=== PATIENT | male | born 1940 | race Caucasian/White ===

== ENCOUNTER 2016-10-21 09:45 | Emergency (ER) | payer MEDICARE, OTHER ==
[2016-10-21 10:21] LABS: ABSOLUTE LYMPHOCYTES (AUTO) 0.5 10^3/uL (0.5-4.7); ABSOLUTE MONOCYTES (AUTO) 0.4 10^3/uL (0.1-1.4); ABSOLUTE NEUT (AUTO) 8.3 10^3/uL (1.7-8.2); BASOPHILS % (AUTO) 0.3 % (0-2); HEMATOCRIT 45.4 % (37.9-51.0); HEMOGLOBIN 15.8 g/dL (13.5-17.0); LYMPHOCYTES % (AUTO) 5.5 % (13-45); MEAN CORPUSCULAR HEMOGLOBIN 32.2 pg (27.0-33.4); MEAN CORPUSCULAR HGB CONC 34.7 g/dL (32.0-36.0); MEAN CORPUSCULAR VOLUME 93 fl (80-97); MONOCYTES % (AUTO) 3.9 % (3-13); RED BLOOD COUNT 4.88 10^6/uL (4.35-5.55); RED CELL DISTRIBUTION WIDTH 14.3 % (11.5-14.0); SEGMENTED NEUTROPHILS % (AUTO) 90.3 % (42-78); WHITE BLOOD COUNT 9.2 10^3/uL (4.0-10.5)
[2016-10-21] MEDS ORDERED: MORPHINE SULFATE 10 MG/ML INJ IV ONE (10:36)
[2016-10-21] MEDS ORDERED: NORMAL SALINE 1000 ML 1,000 ML IV ONE (10:36)
[2016-10-21] MEDS ORDERED: ONDANSETRON HCL INJ/PF 4 MG/2 ML SDV IV ONE (10:36)
--- NOTE | 2016-10-21 10:39 | ER Document Report ---
ED General - General Chief Complaint: Abdominal Pain >50 Stated Complaint: ABDOMINAL PAIN Time Seen by Provider: 10/21/16 10:11 Mode of Arrival: Ambulatory Information source: Patient Notes: 76 yr old male presents with complaitns or RUQ pain with nausea vomting . Pt notes that he has had chronic leg pain that he has had worsened since he TRAVEL OUTSIDE OF THE [place] IN LAST 30 DAYS: No - HPI Onset: Other Onset/Duration: Persistent - 4 day duration Quality of pain: Achy Severity: Mild Pain Level: 1 Associated symptoms: Diarrhea, Nausea, Vomiting Exacerbated by: Denies Relieved by: Denies Similar symptoms previously: No Recently seen / treated by doctor: Yes - Seen at pain clinic yesterday given nausea control - Related Data Allergies/Adverse Reactions: No Known Allergies Allergy (Verified 10/21/16 10:24) Home Medications: Current Home Medications Oxycodone HCl/Acetaminophen [Percocet 10-325 Mg Tablet] 1 each PO BID 10/21/16 [ History] Past Medical History - Social History Smoking Status: Never Smoker Cigarette use (# per day): No Chew tobacco use (# tins/day): No Smoking Education Provided: No Frequency of alcohol use: None Drug Abuse: None Family History: Reviewed & Not Pertinent Patient has suicidal ideation: No Patient has homicidal ideation: No - Past Medical History Cardiac Medical History: Reports: Hx Atrial Fibrillation, Hx Hypercholesterolemia, Hx Heart Murmur - req sbe prophylaxis Denies: Hx Heart Attack, Hx Hypertension Pulmonary Medical History: Denies: Hx Asthma Neurological Medical History: Denies: Hx Cerebrovascular Accident, Hx Seizures Endocrine Medical History: Reports: Hx Diabetes Mellitus Type 2 Renal/ Medical History: Reports: Hx Kidney Stones. Denies: Hx Peritoneal Dialysis Malignancy Medical History: Reports Hx Prostate Cancer GI Medical History: Denies: Hx Hepatitis, Hx Hiatal Hernia, Hx Ulcer Musculoskeltal Medical History: Reports Hx Arthritis, Reports Hx Musculoskeletal Deformity, Reports Hx Musculoskeletal Trauma Infectious Medical History: Denies: Hx Hepatitis Past Surgical History: Reports: Hx Orthopedic Surgery - knee right replacement. Denies: Hx Open Heart Surgery, Hx Pacemaker - Immunizations Immunizations up to date: Yes Hx Diphtheria, Pertussis, Tetanus Vaccination: Yes Hx Pneumococcal Vaccination: 09/19/12 Review of Systems - Review of Systems Notes: REVIEW OF SYSTEMS: CONSTITUTIONAL : Denies fever, chills, or sweats. Denies recent illness. EENT: Denies eye, ear, throat, or mouth pain or symptoms. Denies nasal or sinus congestion or discharge. Denies throat, tongue, or mouth swelling or difficulty swallowing. CARDIOVASCULAR: Denies chest pain. Denies palpitations or racing or irregular heart beat. Denies ankle edema. RESPIRATORY: Denies cough, cold, or chest congestion. Denies shortness of breath, difficulty breathing, or wheezing. GASTROINTESTINAL: Admits to abdominal pain nausea vomiting diarrhea GENITOURINARY: Denies difficulty urinating, painful urination, burning, frequency, blood in urine, or discharge. MUSCULOSKELETAL: Admits to chronic arthritic pain of the left lower extremity SKIN: Denies rash, lesions or sores. HEMATOLOGIC : Denies easy bruising or bleeding. LYMPHATIC: Denies swollen, enlarged glands. NEUROLOGICAL: Denies confusion or altered mental status. Denies passing out or loss of consciousness. Denies dizziness or lightheadedness. Denies headache. Denies weakness or paralysis or loss of use of either side. Denies problems with gait or speech. Denies sensory loss, numbness, or tingling. Denies seizures. PSYCHIATRIC: Denies anxiety or stress. Denies depression, suicidal ideation, or homicidal ideation. ALL OTHER SYSTEMS REVIEWED AND NEGATIVE. Dictation was performed using [employer] voice recognition software PHYSICAL EXAMINATION: GENERAL: Well-appearing, well-nourished and in no acute distress. HEAD: Atraumatic, normocephalic. EYES: Pupils equal round and reactive to light, extraocular movements intact, sclera anicteric, conjunctiva are normal. ENT: Nares patent, oropharynx clear without exudates. Moist mucous membranes. NECK: Normal range of motion, supple without lymphadenopathy LUNGS: Breath sounds clear to auscultation bilaterally and equal. No wheezes rales or rhonchi. HEART: Regular rate and rhythm without murmurs ABDOMEN: Soft, tender in the right upper quadrant without rebound or guarding Musculoskeletal: Normal range of motion, no pitting or edema. No cyanosis. NEUROLOGICAL: Cranial nerves grossly intact. Normal speech, normal gait. Normal sensory, motor exams PSYCH: Normal mood, normal affect. SKIN: Extremely becerra in the appearance Physical Exam - Vital signs Vitals: Temp Pulse Resp BP Pulse Ox 97.5 F 73 14 122/79 99 10/21/16 09:50 10/21/16 09:50 10/21/16 09:50 10/21/16 09:50 10/21/16 09:50 Course - Re-evaluation Re-evalutation: 10/21/16 10:44 Patient symptoms have been worsening since he has not been able to hold down his pain control I will give fluids, pain control, labs and imaging 10/21/16 12:09 Patient's lab work imaging note no significant abnormality, patient will be continued on IV fluids and will be discharged home nausea control the otherwise looks well After performing a Medical Screening Examination, I estimate there is LOW risk for ACUTE APPENDICITIS, BOWEL OBSTRUCTION, ACUTE CHOLECYSTITIS, PERFORATED DIVERTICULITIS, INCARCERATED HERNIA, PANCREATITIS, or PERFORATED ULCER, thus I consider the discharge disposition reasonable. Also, there is no evidence or peritonitis, sepsis, or toxicity. I have reevaluated this patient multiple times and no significant life threatening changes are noted. The patient and I have discussed the diagnosis and risks, and we agree with discharging home with close follow-up with the understanding that symptoms and presentations can change. We also discussed returning to the Emergency Department immediately if new or worsening symptoms occur. We have discussed the symptoms which are most concerning (e.g., bloody stool, fever, changing or worsening pain, intractable vomiting - standard verbal up date) that necessitate immediate return. - Vital Signs Vital signs: Temp Pulse Resp BP Pulse Ox 97.5 F 73 14 122/79 99 10/21/16 09:50 10/21/16 09:50 10/21/16 09:50 10/21/16 09:50 10/21/16 09:50 - Laboratory Result Diagrams: 10/21/16 10:05 10/21/16 10:05 Laboratory results interpreted by me: 10/21/16 10/21/16 10:05 10:05 RDW 14.3 H Seg Neutrophils % 90.3 H Lymphocytes % 5.5 L Absolute Neutrophils 8.3 H Glucose 125 H Total Bilirubin 1.4 H - Diagnostic Test Radiology reviewed: Image reviewed, Reports reviewed - no acute abnormality Discharge - Discharge Clinical Impression: Chronic arthritic pain Abdominal pain Qualifiers: Abdominal location: right upper quadrant Qualified Code(s): R10.11 - Right upper quadrant pain Nausea & vomiting Qualifiers: Vomiting type: unspecified Vomiting Intractability: non-intractable Qualified Code(s): R11.2 - Nausea with vomiting, unspecified Condition: Stable Disposition: HOME, SELF-CARE Instructions: Abdominal Pain ([facility]) Prescriptions: Promethazine HCl [Phenergan 25 mg Tablet] 25 - 50 mg PO ASDIR PRN #12 tablet PRN Reason: Referrals: ED IQBAL MD [Primary Care Provider] - Follow up tomorrow
[2016-10-21 10:49] LABS: ALANINE AMINOTRANSFERASE 48 U/L (21-72); ALBUMIN 4.2 g/dL (3.5-5.0); ALKALINE PHOSPHATASE 85 U/L (38-126); ANION GAP 13 (5-19); ASPARTATE AMINO TRANSFERASE 43 U/L (17-59); BILIRUBIN,DIRECT 0.4 mg/dL (0.0-0.4); BILIRUBIN,TOTAL 1.4 mg/dL (0.2-1.3); BLOOD UREA NITROGEN 12 mg/dL (7-20); CALCIUM 9.8 mg/dL (8.4-10.2); CARBON DIOXIDE 26 mmol/L (22-30); CHLORIDE 105 mmol/L (98-107); CREATININE RESULT 0.81 mg/dL (0.52-1.25); GLUCOSE 125 mg/dL (75-110); LIPASE 173.6 U/L (23-300); POTASSIUM 4.2 mmol/L (3.6-5.0); SODIUM 144.1 mmol/L (137-145); TOTAL PROTEIN 7.6 g/dL (6.3-8.2)
--- NOTE | 2016-10-21 11:52 | RADIOLOGY REPORT (SQ) ---
EXAM DESCRIPTION: U/S ABDOMEN LIMITED W/O DOP COMPLETED DATE/TIME: 10/21/2016 11:44 am REASON FOR STUDY: RUQ pain COMPARISON: None. TECHNIQUE: Dynamic and static grayscale images acquired of the abdomen and recorded on PACS. Additio nal selected color Doppler and spectral images recorded. LIMITATIONS: None. FINDINGS: PANCREAS: No masses. Visualized pancreatic duct normal caliber. LIVER: No masses. Echotexture normal. LIVER VASCULATURE: Normal directional flow of the main portal vein and hepatic veins. GALLBLADDER: No stones. Normal wall thickness. No pericholecystic fluid. ULTRASOUND-DETECTED SANTAMARIA'S SIGN: Negative. INTRAHEPATIC DUCTS AND COMMON DUCT: CBD and intrahepatic ducts normal caliber. No filling defects. INFERIOR VENA CAVA: Normal flow. AORTA: No aneurysm. RIGHT KIDNEY: Normal size. Normal echogenicity. No solid or suspicious masses. No hydronephrosis. No calcifications. PERITONEAL AND RIGHT PLEURAL SPACE: No ascites or effusions. OTHER: No other significant findings. IMPRESSION: NORMAL RIGHT UPPER QUADRANT ULTRASOUND. TECHNICAL DOCUMENTATION: JOB ID: [id number]- All Rights Reserved
[2016-10-21 14:20] VITALS: BP 114/54
== END 2016-10-21 14:20 | disposition home or self-care (01) ==
LOC: ER 09:45
DX: R10.11 Right upper quadrant pain (principal); R19.7 Diarrhea, unspecified; R11.2 Nausea with vomiting, unspecified; I10 Essential (primary) hypertension; M19.90 Unspecified osteoarthritis, unspecified site; M79.606 Pain in leg, unspecified; G89.29 Other chronic pain; E11.9 Type 2 diabetes mellitus without complications; Z85.46 Personal history of malignant neoplasm of prostate
CPT/HCPCS: 99284; 96361; 96374; 96375; 36415; 83690; 85025; 80053; 76705; J2270; J2405; J7030

== ENCOUNTER 2017-04-19 02:23 | Emergency (ER) | payer MEDICARE, OTHER ==
[2017-04-19] MEDS ORDERED: DIAZEPAM 2 MG TABLET PO ONE (03:01)
[2017-04-19 04:23] LABS: ANION GAP 8 (5-19); BLOOD UREA NITROGEN 16 mg/dL (7-20); CALCIUM 9.8 mg/dL (8.4-10.2); CARBON DIOXIDE 30 mmol/L (22-30); CHLORIDE 105 mmol/L (98-107); GLUCOSE 112 mg/dL (75-110); MAGNESIUM 1.7 mg/dL (1.6-2.3); SODIUM 142.7 mmol/L (137-145)
[2017-04-19 04:29] LABS: APPEARANCE,URINE CLEAR; BILIRUBIN,URINE NEGATIVE (NEGATIVE); COLOR,URINE YELLOW; GLUCOSE, URINE NEGATIVE (NEGATIVE); KETONES,URINE NEGATIVE (NEGATIVE); LEUKOCYTE ESTERASE,URINE NEGATIVE (NEGATIVE); NITRITE,URINE NEGATIVE (NEGATIVE); PROTEIN,URINE NEGATIVE (NEGATIVE); URINE SPECIFIC GRAVITY 1.011
[2017-04-19] MEDS ORDERED: TAMSULOSIN HCL 0.4 MG CAP.SR.24H PO ONE (05:06)
--- NOTE | 2017-04-19 05:11 | ER Document Report ---
ED General - General Chief Complaint: Urinary Problem Stated Complaint: FREQUENT URINATION Time Seen by Provider: 04/19/17 03:01 TRAVEL OUTSIDE OF THE [place] IN LAST 30 DAYS: No - HPI Patient complains to provider of: Frequent urination muscle spasm in legs Notes: Patient coming in for multiple complaints most concerning for the patient is frequent urination and muscle spasms in his legs. Patient is on chronic pain management also was taken Neurontin. Patient states that he has been having spasm in his leg states he is status post less tested for the spasms by his PCP. Patient also states frequent urination. Denies any dysuria. States frequency of small amounts. Patient otherwise also complains of insomnia and is feeling generally unwell. Patient was alert and oriented looks no obvious distress upon my evaluation. - Related Data Allergies/Adverse Reactions: No Known Allergies Allergy (Verified 04/19/17 02:32) Past Medical History - Social History Smoking Status: Unknown if Ever Smoked Family History: Reviewed & Not Pertinent Patient has suicidal ideation: No Patient has homicidal ideation: No - Past Medical History Cardiac Medical History: Reports: Hx Atrial Fibrillation, Hx Hypercholesterolemia, Hx Heart Murmur - req sbe prophylaxis Denies: Hx Heart Attack, Hx Hypertension Pulmonary Medical History: Denies: Hx Asthma Neurological Medical History: Denies: Hx Cerebrovascular Accident, Hx Seizures Endocrine Medical History: Reports: Hx Diabetes Mellitus Type 2 Renal/ Medical History: Reports: Hx Kidney Stones. Denies: Hx Peritoneal Dialysis Malignancy Medical History: Reports Hx Prostate Cancer GI Medical History: Denies: Hx Hepatitis, Hx Hiatal Hernia, Hx Ulcer Musculoskeltal Medical History: Reports Hx Arthritis, Reports Hx Musculoskeletal Deformity, Reports Hx Musculoskeletal Trauma Infectious Medical History: Denies: Hx Hepatitis Past Surgical History: Reports: Hx Orthopedic Surgery - knee right replacement. Denies: Hx Open Heart Surgery, Hx Pacemaker - Immunizations Immunizations up to date: Yes Hx Diphtheria, Pertussis, Tetanus Vaccination: Yes Hx Pneumococcal Vaccination: 09/19/12 Review of Systems - Review of Systems Constitutional: Other - Urinary frequency and muscle spasms EENT: No symptoms reported Cardiovascular: No symptoms reported Respiratory: No symptoms reported Gastrointestinal: No symptoms reported Genitourinary: No symptoms reported Male Genitourinary: No symptoms reported Musculoskeletal: No symptoms reported Skin: No symptoms reported Hematologic/Lymphatic: No symptoms reported Neurological/Psychological: No symptoms reported -: Yes All other systems reviewed and negative Physical Exam - Vital signs Vitals: Temp Pulse Resp BP Pulse Ox 97.8 F 54 L 16 122/66 99 04/19/17 02:38 04/19/17 02:38 04/19/17 02:38 04/19/17 02:38 04/19/17 02:38 Interpretation: Normal - General General appearance: Appears well, Alert - HEENT Head: Normocephalic, Atraumatic Eyes: Normal Pupils: PERRL - Respiratory Respiratory status: No respiratory distress Chest status: Nontender Breath sounds: Normal Chest palpation: Normal - Cardiovascular Rhythm: Regular Heart sounds: Normal auscultation Murmur: No - Abdominal Inspection: Normal Distension: No distension Bowel sounds: Normal Tenderness: Nontender Organomegaly: No organomegaly - Back Back: Normal, Nontender - Extremities General upper extremity: Normal inspection, Nontender, Normal color, Normal ROM , Normal temperature General lower extremity: Normal inspection, Nontender, Normal color, Normal ROM , Normal temperature, Normal weight bearing, Other - Fasciculations of the left thigh muscle are seen. No: Sahra's sign - Neurological Neuro grossly intact: Yes Cognition: Normal Orientation: AAOx4 Jillian Coma Scale Eye Opening: Spontaneous Leona Coma Scale Verbal: Oriented Jillian Coma Scale Motor: Obeys Commands Leona Coma Scale Total: 15 Speech: Normal Motor strength normal: LUE, RUE, LLE, RLE Sensory: Normal - Psychological Associated symptoms: Normal affect, Normal mood - Skin Skin Temperature: Warm Skin Moisture: Dry Skin Color: Normal Course - Re-evaluation Re-evalutation: 04/19/17 05:17 Fasciculations resolved after volume. Patient is on Percocet chronically. Patient will be given Skelaxin for muscle relaxer for home. Patient also restarted on Flomax no signs of any critical pathology seen laboratory studies. - Vital Signs Vital signs: Temp Pulse Resp BP Pulse Ox 97.8 F 54 L 16 122/66 99 04/19/17 02:38 04/19/17 02:38 04/19/17 02:38 04/19/17 02:38 04/19/17 02:38 - Laboratory Result Diagrams: 04/19/17 03:35 Laboratory results interpreted by me: 04/19/17 04/19/17 03:35 04:15 Glucose 112 H Urine Urobilinogen 4.0 H Urine Ascorbic Acid 20 H Discharge - Discharge Clinical Impression: Urinary frequency Muscle spasms of lower extremity Qualifiers: Laterality: left Qualified Code(s): M62.838 - Other muscle spasm Condition: Good Disposition: HOME, SELF-CARE Instructions: Flomax ([facility]), Muscle Relaxers ([facility]) Additional Instructions: At this time your urinalysis does show any signs of infection. The fasciculations in your left lower extremity have resolved. I will prescribe you muscle relaxer for home. Please take as directed. For urinary frequency this could be due to underlying BPH we will start you on Flomax if you receive relief with your symptoms I will discuss this with your primary care physician Prescriptions: Metaxalone [Skelaxin 800 mg Tablet] 800 mg PO ASDIR PRN #20 tablet PRN Reason: Tamsulosin HCl [Flomax 0.4 mg Cap.sr] 0.4 mg PO DAILY #7 cap.sr.24h Forms: Return to Work Referrals: MIKAELA WEBSTER NP [Primary Care Provider] - Follow up as needed
[2017-04-19 05:30] VITALS: BP 121/68
== END 2017-04-19 05:30 | disposition home or self-care (01) ==
LOC: ER 02:23
DX: R35.0 Frequency of micturition (principal); M62.838 Other muscle spasm; G47.00 Insomnia, unspecified; E11.9 Type 2 diabetes mellitus without complications; Z79.891 Long term (current) use of opiate analgesic; Z79.899 Other long term (current) drug therapy
CPT/HCPCS: 99283; 36415; 83735; 80048; 81001; A9270 ×2; J3490

== ENCOUNTER 2017-04-20 10:38 | Emergency (ER) | payer MEDICARE, OTHER ==
[2017-04-20] MEDS ORDERED: NORMAL SALINE 1000 ML 1,000 ML IV ONE (10:58)
--- NOTE | 2017-04-20 11:00 | ER Document Report ---
ED Medical Screen (RME) - General Chief Complaint: Diarrhea Stated Complaint: ABDOMINAL PAIN Time Seen by Provider: 04/20/17 10:57 Mode of Arrival: Wheelchair Information source: Patient, Relative TRAVEL OUTSIDE OF THE [place] IN LAST 30 DAYS: No - HPI Patient complains to provider of: abd pain Onset: Yesterday - pt .seen here yesterday for frequent urination with c/o lower abd pain and possible dehydration - Related Data Allergies/Adverse Reactions: No Known Allergies Allergy (Verified 04/20/17 10:40) Past Medical History - Social History Frequency of alcohol use: None Drug Abuse: None - Past Medical History Cardiac Medical History: Reports: Hx Atrial Fibrillation, Hx Hypercholesterolemia, Hx Heart Murmur - req sbe prophylaxis Denies: Hx Heart Attack, Hx Hypertension Pulmonary Medical History: Denies: Hx Asthma Neurological Medical History: Denies: Hx Cerebrovascular Accident, Hx Seizures Endocrine Medical History: Reports: Hx Diabetes Mellitus Type 2 Renal/ Medical History: Reports: Hx Kidney Stones. Denies: Hx Peritoneal Dialysis Malignancy Medical History: Reports Hx Prostate Cancer GI Medical History: Denies: Hx Hepatitis, Hx Hiatal Hernia, Hx Ulcer Musculoskeltal Medical History: Reports Hx Arthritis, Reports Hx Musculoskeletal Deformity, Reports Hx Musculoskeletal Trauma Infectious Medical History: Denies: Hx Hepatitis Past Surgical History: Reports: Hx Orthopedic Surgery - knee right replacement. Denies: Hx Open Heart Surgery, Hx Pacemaker - Immunizations Immunizations up to date: Yes Hx Diphtheria, Pertussis, Tetanus Vaccination: Yes Physical Exam - Vital signs Vitals: Temp Pulse Resp BP Pulse Ox 97.6 F 89 12 126/90 H 99 04/20/17 10:47 04/20/17 10:47 04/20/17 10:47 04/20/17 10:47 04/20/17 10:47 Course - Vital Signs Vital signs: Temp Pulse Resp BP Pulse Ox 97.6 F 89 12 126/90 H 99 04/20/17 10:47 04/20/17 10:47 04/20/17 10:47 04/20/17 10:47 04/20/17 10:47
[2017-04-20 11:46] LABS: ABSOLUTE BASOPHILS # (AUTO) 0.1 10^3/uL (0.0-0.2); ABSOLUTE LYMPHOCYTES (AUTO) 0.9 10^3/uL (0.5-4.7); ABSOLUTE MONOCYTES (AUTO) 0.7 10^3/uL (0.1-1.4); ABSOLUTE NEUT (AUTO) 4.6 10^3/uL (1.7-8.2); APPEARANCE,URINE CLEAR; BILIRUBIN,URINE NEGATIVE (NEGATIVE); COLOR,URINE YELLOW; EOSINOPHILS % (AUTO) 0.3 % (0-6); GLUCOSE, URINE NEGATIVE (NEGATIVE); HEMATOCRIT 44.4 % (37.9-51.0); HEMOGLOBIN 14.9 g/dL (13.5-17.0); KETONES,URINE 20 mg/dL (NEGATIVE); LEUKOCYTE ESTERASE,URINE NEGATIVE (NEGATIVE); LYMPHOCYTES % (AUTO) 14.5 % (13-45); MEAN CORPUSCULAR HGB CONC 33.7 g/dL (32.0-36.0); MEAN CORPUSCULAR VOLUME 92 fl (80-97); MONOCYTES % (AUTO) 11.1 % (3-13); NITRITE,URINE NEGATIVE (NEGATIVE); PLATELET COUNT 194 10^3/uL (150-450); PROTEIN,URINE NEGATIVE (NEGATIVE); RED BLOOD COUNT 4.82 10^6/uL (4.35-5.55); RED CELL DISTRIBUTION WIDTH 13.4 % (11.5-14.0); SEGMENTED NEUTROPHILS % (AUTO) 73.1 % (42-78); TOTAL CELLS COUNTED % (AUTO) 100 %; URINE SPECIFIC GRAVITY 1.017; WHITE BLOOD COUNT 6.2 10^3/uL (4.0-10.5)
[2017-04-20 12:03] LABS: ALANINE AMINOTRANSFERASE 44 U/L (21-72); ALBUMIN 4.7 g/dL (3.5-5.0); ALKALINE PHOSPHATASE 74 U/L (38-126); ANION GAP 11 (5-19); ASPARTATE AMINO TRANSFERASE 41 U/L (17-59); BILIRUBIN,DIRECT 0.4 mg/dL (0.0-0.4); BILIRUBIN,TOTAL 1.5 mg/dL (0.2-1.3); BLOOD UREA NITROGEN 16 mg/dL (7-20); CALCIUM 10.3 mg/dL (8.4-10.2); CARBON DIOXIDE 30 mmol/L (22-30); CHLORIDE 104 mmol/L (98-107); GLUCOSE 103 mg/dL (75-110); LIPASE 191.5 U/L (23-300); POTASSIUM 4.3 mmol/L (3.6-5.0); SODIUM 144.8 mmol/L (137-145); TOTAL PROTEIN 7.7 g/dL (6.3-8.2)
[2017-04-20] MEDS ORDERED: NORMAL SALINE 1000 ML 1,000 ML IV PRN (12:53)
--- NOTE | 2017-04-20 13:07 | ER Document Report ---
ED General <TITI FUENTES - Last Filed: 04/20/17 13:07> - General Mode of Arrival: Wheelchair TRAVEL OUTSIDE OF THE [place] IN LAST 30 DAYS: No <AGAPITO BECKER - Last Filed: 04/21/17 20:07> - General Chief Complaint: Diarrhea Stated Complaint: ABDOMINAL PAIN Time Seen by Provider: 04/20/17 10:57 Notes: Patient presents with approximately 5 bouts of nonbloody diarrhea and intermittent abdominal cramping that started last night. Denies any chest pain recent cough congestion or fevers. He was seen yesterday in the emergency department as well for fatigue and having restless leg of his right lower extremity that he states has been chronic and intermittent over the last several years. He was prescribed muscle relaxers yesterday and sent home. He represents today because he is concerned he may be dehydrated due to his diarrhea. (AGAPITO BECKER) - Related Data Allergies/Adverse Reactions: No Known Allergies Allergy (Verified 04/20/17 10:40) Past Medical History - General Information source: Patient, Relative - Social History Smoking Status: Never Smoker Frequency of alcohol use: None Drug Abuse: None Family History: Reviewed & Not Pertinent Patient has suicidal ideation: No Patient has homicidal ideation: No - Past Medical History Cardiac Medical History: Reports: Hx Atrial Fibrillation, Hx Hypercholesterolemia, Hx Heart Murmur - req sbe prophylaxis Denies: Hx Heart Attack, Hx Hypertension Pulmonary Medical History: Denies: Hx Asthma Neurological Medical History: Denies: Hx Cerebrovascular Accident, Hx Seizures Endocrine Medical History: Reports: Hx Diabetes Mellitus Type 2 Renal/ Medical History: Reports: Hx Kidney Stones. Denies: Hx Peritoneal Dialysis Malignancy Medical History: Reports Hx Prostate Cancer GI Medical History: Denies: Hx Hepatitis, Hx Hiatal Hernia, Hx Ulcer Musculoskeltal Medical History: Reports Hx Arthritis, Reports Hx Musculoskeletal Deformity, Reports Hx Musculoskeletal Trauma Infectious Medical History: Denies: Hx Hepatitis Past Surgical History: Reports: Hx Orthopedic Surgery - knee right replacement. Denies: Hx Open Heart Surgery, Hx Pacemaker - Immunizations Immunizations up to date: Yes Hx Diphtheria, Pertussis, Tetanus Vaccination: Yes Hx Pneumococcal Vaccination: 09/19/12 <AGAPTIO BECKER - Last Filed: 04/21/17 20:07> Review of Systems - Review of Systems Constitutional: Malaise EENT: No symptoms reported Cardiovascular: No symptoms reported Respiratory: No symptoms reported Gastrointestinal: Diarrhea Genitourinary: No symptoms reported Male Genitourinary: No symptoms reported Musculoskeletal: No symptoms reported, Other - Intermittent restless leg of right lower extremity asymptomatic at this time Skin: No symptoms reported Hematologic/Lymphatic: No symptoms reported Neurological/Psychological: No symptoms reported <AGAPITO BECKER Kenzie - Last Filed: 04/21/17 20:07> Physical Exam - General General appearance: Appears well, Alert - HEENT Head: Normocephalic, Atraumatic - Respiratory Respiratory status: No respiratory distress Chest status: Nontender Breath sounds: Normal Chest palpation: Normal - Cardiovascular Rhythm: Irregularly irregular Heart sounds: Normal auscultation Murmur: No Friction rub: No - Abdominal Inspection: Normal Distension: No distension Bowel sounds: Normal Tenderness: Nontender - Extremities General upper extremity: Normal inspection - Neurological Neuro grossly intact: Yes <AGAPITO BECKER Kenzie - Last Filed: 04/21/17 20:07> - Vital signs Vitals: Temp Pulse Resp BP Pulse Ox 97.6 F 89 12 126/90 H 99 04/20/17 10:47 04/20/17 10:47 04/20/17 10:47 04/20/17 10:47 04/20/17 10:47 Course - Laboratory Result Diagrams: 04/20/17 11:25 04/20/17 11:25 <TITI FUENTES - Last Filed: 04/20/17 13:07> - Laboratory Result Diagrams: 04/20/17 11:25 04/20/17 11:25 <AGAPITO BECKER Kenzie - Last Filed: 04/21/17 20:07> - Re-evaluation Re-evalutation: 04/20/17 13:06 Differential diagnosis: Diarrhea, gastritis, electrolyte disturbance, dehydration 04/20/17 13:06 We will draw basic labs due to patient's age to ensure no electrolyte abnormality provide fluids and reassess. 04/20/17 14:21 Patient's labs within normal limits are nonsignificant with mild ketones in urine. 1 L of fluid were provided as well as he is on chronic Percocet 3 times a day and his pain pill was provided to him as he had not taken it this morning for his chronic right lower extremity pain. Patient was instructed to take Pepto-Bismol for his diarrhea and follow-up with his primary care doctor in 2-3 days or sooner to the emergency department if symptoms are worsening (AGAPITO BECKER) - Vital Signs Vital signs: Temp Pulse Resp BP Pulse Ox 97.6 F 89 19 134/79 H 99 04/20/17 10:47 04/20/17 10:47 04/20/17 14:30 04/20/17 14:30 04/20/17 14:30 - Laboratory Laboratory results interpreted by me: 04/20/17 04/20/17 11:25 11:25 Calcium 10.3 H Total Bilirubin 1.5 H Urine Ketones 20 H Urine Urobilinogen 4.0 H Urine Ascorbic Acid 40 H Discharge <TITI FUENTES - Last Filed: 04/20/17 13:07> <AGAPITO BECKER - Last Filed: 04/21/17 20:07> - Discharge Clinical Impression: Leg pain, right Diarrhea Qualifiers: Diarrhea type: unspecified type Qualified Code(s): R19.7 - Diarrhea, unspecified Condition: Good Disposition: HOME, SELF-CARE Instructions: Diarrhea, Nonspecific ([facility]) Additional Instructions: Please follow-up with your primary care physician in 2-3 days for reevaluation or sooner to the emergency arm if symptoms are worsening. Please take over-the- counter Pepto-Bismol for your diarrhea starting today. Referrals: [facility] IQ[facility] MD [Primary Care Provider] - Follow up as needed Scribe Attestation: 04/21/17 19:27 I personally performed the services described documentation, reviewed and edited the documentation which was dictated to describe my presence, and it accurately records my words and actions. (AGAPITO BECKER)
--- NOTE | 2017-04-20 13:35 | RADIOLOGY REPORT (SQ) ---
EXAM DESCRIPTION: CT ABD/PELVIS WITH IV ONLY COMPLETED DATE/TIME: 04/20/2017 1:25 pm REASON FOR STUDY: abd pain COMPARISON: None. TECHNIQUE: CT scan of the abdomen and pelvis performed using helical scanning technique with dynamic intravenous contrast injection. No oral contrast. Images reviewed with lung, soft tissue, and bone windows. Reconstructed coronal and sagittal MPR images reviewed. Delayed images for evaluation of the urinary system also acquired. All images stored on PACS. All CT scanners at this facility use dose modulation, iterative reconstruction, and/or weight based d osing when appropriate to reduce radiation dose to as low as reasonably achievable (ALARA). [facility]: Dose Right [facility]: CareDose [facility]: Dose Right [facility]: Teradose 4D [facility]: Life is Tech CONTRAST TYPE AND DOSE: contrast/concentration: Isovue 370.00 mg/ml; Total Contrast Delivered: 79.0 ml; Total Saline Delivered: 67.0 ml RENAL FUNCTION: GFR > 60. RADIATION DOSE: CT Rad equipment meets quality standard of care and radiation dose reduction techniq ues were employed. CTDIvol: 5.3 - 6.9 mGy. DLP: 672 mGy-cm.. LIMITATIONS: None. FINDINGS: LOWER CHEST: No significant findings. No nodules or infiltrates. LIVER: Normal size. No masses. No dilated ducts. SPLEEN: Old granulomatous disease. PANCREAS: No masses. No significant calcifications. No adjacent inflammation or peripancreatic fluid collections. Pancreatic duct not dilated. GALLBLADDER: Possible tiny gallstones. No inflammatory changes to suggest cholecystitis. ADRENAL GLANDS: No significant masses or asymmetry. RIGHT KIDNEY AND URETER: No solid masses. No significant calcifications. No hydronephrosis or hyd roureter. LEFT KIDNEY AND URETER: No solid masses. No significant calcifications. No hydronephrosis or hydr oureter. AORTA AND VESSELS: No aneurysm. RETROPERITONEUM: No retroperitoneal adenopathy, hemorrhage or masses. BOWEL AND PERITONEAL CAVITY: No masses or inflammatory changes. No free fluid or peritoneal masses. APPENDIX: Normal. PELVIS: No mass. No free fluid. Normal bladder. ABDOMINAL WALL: No masses. No hernias. BONES: No significant or acute findings. OTHER: No other significant finding. IMPRESSION: No acute findings in the abdomen or pelvis. TECHNICAL DOCUMENTATION: JOB ID: [id number] Quality ID # [id number]: Final reports with documentation of one or more dose reduction techniques (e.g., Au tomated exposure control, adjustment of the mA and/or kV according to patient size, use of iterative reconstruction technique) 2010 [employer]- All Rights Reserved
[2017-04-20] MEDS ORDERED: OXYCODONE-ACETAMINOPHEN 5-325 MG TABLET PO ONE (14:20)
[2017-04-20 14:49] VITALS: BP 134/79
== END 2017-04-20 14:40 | disposition home or self-care (01) ==
LOC: ER 10:38
DX: R19.7 Diarrhea, unspecified (principal); M79.604 Pain in right leg; G89.29 Other chronic pain; Z79.891 Long term (current) use of opiate analgesic; R10.9 Unspecified abdominal pain; R53.81 Other malaise; G25.81 Restless legs syndrome; E11.9 Type 2 diabetes mellitus without complications; Z85.46 Personal history of malignant neoplasm of prostate
CPT/HCPCS: 99284; 96360; 36415; 83690; 83735; 85025; 80053; 81001; 84484; 74177; J7030

== ENCOUNTER 2017-06-27 23:29 | Observation (INO) | payer MEDICARE, OTHER ==
--- NOTE | 2017-06-28 00:03 | ER Document Report ---
ED Cardiac - General Chief Complaint: Chest Pain Stated Complaint: CHEST PAIN Time Seen by Provider: 06/27/17 23:38 Mode of Arrival: Medic Information source: Patient Notes: Patient is a 77-year-old male who presents today with complaints of midsternal chest pain that started yesterday morning. Patient states that he has not had this type of pain before, describes the pain as sharp stabbing pain with nausea and diaphoresis. Denies any shortness of breath. Patient reports a recent C3 through [address] [facility] on Thursday. Patient states that he has had neck and shoulder pain since discharge from the hospital on Thursday. Patient reports a medical history of A. fib, hyperlipidemia and diabetes. TRAVEL OUTSIDE OF THE [place] IN LAST 30 DAYS: No - HPI Use of: denies: Alcohol, Cocaine Was the onset of pain: Gradual When did pain begin: 06/27/17 approx 9am Is the pain a: New problem - Related Data Allergies/Adverse Reactions: No Known Allergies Allergy (Verified 04/20/17 10:40) Past Medical History - General Information source: Patient - Social History Smoking Status: Never Smoker Frequency of alcohol use: None Drug Abuse: None Lives with: Spouse/Significant other Family History: Reviewed & Not Pertinent, Other - Unknown - Past Medical History Cardiac Medical History: Reports: Hx Atrial Fibrillation, Hx Hypercholesterolemia, Hx Heart Murmur - req sbe prophylaxis Denies: Hx Heart Attack, Hx Hypertension Pulmonary Medical History: Denies: Hx Asthma Neurological Medical History: Denies: Hx Cerebrovascular Accident, Hx Seizures Endocrine Medical History: Reports: Hx Diabetes Mellitus Type 2 Renal/ Medical History: Reports: Hx Kidney Stones. Denies: Hx Peritoneal Dialysis Malignancy Medical History: Reports Hx Prostate Cancer GI Medical History: Denies: Hx Hepatitis, Hx Hiatal Hernia, Hx Ulcer Musculoskeltal Medical History: Reports Hx Arthritis, Reports Hx Musculoskeletal Deformity, Reports Hx Musculoskeletal Trauma Infectious Medical History: Denies: Hx Hepatitis Past Surgical History: Reports: Hx Orthopedic Surgery - knee right replacement, Other. Denies: Hx Open Heart Surgery, Hx Pacemaker - Immunizations Immunizations up to date: Yes Hx Diphtheria, Pertussis, Tetanus Vaccination: Yes Hx Pneumococcal Vaccination: 09/19/12 Review of Systems - Review of Systems Constitutional: No symptoms reported EENT: No symptoms reported, Difficulty swallowing - Recent C3/C4/C5 fusion on 06/23/17, difficulty swallowing since discharge. Cardiovascular: See HPI Respiratory: No symptoms reported Gastrointestinal: No symptoms reported Genitourinary: No symptoms reported Male Genitourinary: No symptoms reported Musculoskeletal: No symptoms reported Skin: No symptoms reported Hematologic/Lymphatic: No symptoms reported Neurological/Psychological: No symptoms reported Physical Exam - Vital signs Vitals: Temp Pulse Resp BP Pulse Ox 98.2 F 88 16 140/83 H 95 06/27/17 23:49 06/27/17 23:49 06/27/17 23:49 06/27/17 23:49 06/27/17 23:49 - Notes Notes: PHYSICAL EXAMINATION: GENERAL: Well-appearing, well-nourished and in no acute distress. HEAD: Atraumatic, normocephalic. EYES: Pupils equal round and reactive to light, extraocular movements intact, sclera anicteric, conjunctiva are normal. ENT: Nares patent, oropharynx clear without exudates. Moist mucous membranes. NECK: Surgical site to left lateral neck with steri-strips in place. LUNGS: Breath sounds clear to auscultation bilaterally and equal. No wheezes rales or rhonchi. HEART: Irregular rate and rhythm without murmurs. ABDOMEN: Soft, nontender, nondistended abdomen. No guarding, no rebound. No masses appreciated. Musculoskeletal: Normal range of motion, no pitting or edema. No cyanosis. NEUROLOGICAL: Cranial nerves grossly intact. Normal speech. Normal sensory, motor exams PSYCH: Normal mood, normal affect. SKIN: Warm, Dry, normal turgor, no rashes or lesions noted. Course - Re-evaluation Re-evalutation: EKG reveals atrial fibrillation with a a rate of 77, no ST segment depressions or elevations noted. Chest xray with no acute findings in the chest. Patient remains complaining of non-radiating, non-reproducible midsternal chest pain. Heart score 5 therefore will draw second troponin. Unable to rule out pulmonary embolism due to PERC rule (recent surgery with accompanied chest pain) . Discussed preliminary results with patient and patient agrees to have CTA done. Will medicate patient for pain and will give IV fluids as patient report that he has not been able to have adequate PO intake since his surgery due to pain in his throat and neck. CT negative for any pulmonary embolism. Patient does not appear to be in any distress as he is resting comfortably with family at the bedside. Will collect urine sample to evaluate patient's hydration status. 06/28/17 04:00 Consulted hospitalist, Dr. Payne for possible admission. Patient resting with eyes closed, however continues to complain of chest pain when awoken. Urinalysis shows mild dehydration. Hospitalist agrees to telemetry observation for ACS rule out. - Vital Signs Vital signs: Temp Pulse Resp BP Pulse Ox 98.2 F 88 12 137/95 H 97 06/27/17 23:49 06/27/17 23:49 06/28/17 04:01 06/28/17 04:01 06/28/17 04:01 - Laboratory Result Diagrams: 06/27/17 23:52 06/27/17 23:52 Laboratory results interpreted by me: 06/27/17 06/27/17 06/28/17 23:52 23:52 02:58 Seg Neutrophils % 79.8 H Lymphocytes % 9.9 L Glucose 117 H Total Bilirubin 1.7 H Direct Bilirubin 0.7 H Creatine Kinase 31 L Urine Ketones 20 H Urine Urobilinogen 4.0 H Urine Ascorbic Acid 20 H Discharge - Discharge Clinical Impression: Dehydration Chest pain Qualifiers: Chest pain type: unspecified Qualified Code(s): R07.9 - Chest pain, unspecified Condition: Stable Disposition: ADMITTED OBSERVATION Admitting Provider: Hospitalist Unit Admitted: Telemetry Referrals: ED IQBAL MD [Primary Care Provider] - Follow up as needed
[2017-06-28 00:12] LABS: ABSOLUTE LYMPHOCYTES (AUTO) 0.8 10^3/uL (0.5-4.7); ABSOLUTE MONOCYTES (AUTO) 0.8 10^3/uL (0.1-1.4); ABSOLUTE NEUT (AUTO) 6.4 10^3/uL (1.7-8.2); BASOPHILS % (AUTO) 0.3 % (0-2); EOSINOPHILS % (AUTO) 0.4 % (0-6); HEMATOCRIT 42.7 % (37.9-51.0); HEMOGLOBIN 14.8 g/dL (13.5-17.0); LYMPHOCYTES % (AUTO) 9.9 % (13-45); MEAN CORPUSCULAR HEMOGLOBIN 31.5 pg (27.0-33.4); MEAN CORPUSCULAR HGB CONC 34.5 g/dL (32.0-36.0); MEAN CORPUSCULAR VOLUME 91 fl (80-97); MONOCYTES % (AUTO) 9.6 % (3-13); PLATELET COUNT 211 10^3/uL (150-450); RED BLOOD COUNT 4.68 10^6/uL (4.35-5.55); SEGMENTED NEUTROPHILS % (AUTO) 79.8 % (42-78); TOTAL CELLS COUNTED % (AUTO) 100 %
[2017-06-28 00:19] LABS: ALANINE AMINOTRANSFERASE 46 U/L (21-72); ALBUMIN 3.8 g/dL (3.5-5.0); ALKALINE PHOSPHATASE 103 U/L (38-126); ANION GAP 13 (5-19); ASPARTATE AMINO TRANSFERASE 44 U/L (17-59); BILIRUBIN,DIRECT 0.7 mg/dL (0.0-0.4); BILIRUBIN,TOTAL 1.7 mg/dL (0.2-1.3); BLOOD UREA NITROGEN 14 mg/dL (7-20); CALCIUM 9.6 mg/dL (8.4-10.2); CARBON DIOXIDE 25 mmol/L (22-30); CHLORIDE 103 mmol/L (98-107); CREATINE KINASE 31 U/L (55-170); GLUCOSE 117 mg/dL (75-110); SODIUM 141.1 mmol/L (137-145); TOTAL PROTEIN 6.8 g/dL (6.3-8.2)
[2017-06-28 00:32] LABS: CREATINE KINASE MB 0.67 ng/mL (<4.55); TROPONIN I < 0.012 ng/mL
[2017-06-28] MEDS ORDERED: MORPHINE SULFATE 10 MG/ML INJ IV ONE (01:05)
[2017-06-28] MEDS ORDERED: NORMAL SALINE 1000 ML 1,000 ML IV ONE (01:05)
--- NOTE | 2017-06-28 01:50 | RADIOLOGY REPORT (SQ) ---
EXAM DESCRIPTION: CHEST SINGLE VIEW CLINICAL HISTORY: 77 years Male, chest pain COMPARISON: 4.28.16 NUMBER OF VIEWS/TECHNIQUE: 1/AP LIMITATIONS: None. FINDINGS: Normal lung volume, clear parenchyma, normal cardiac silhouette, and intact bony thorax. IMPRESSION: No acute cardiopulmonary findings.
--- NOTE | 2017-06-28 02:29 | RADIOLOGY REPORT (SQ) ---
EXAM DESCRIPTION: CTA CHEST CLINICAL HISTORY: 77 years Male, chest pain post-op cervical fusion COMPARISON: CR, same day. CT abdomen pelvis, 04/20/2017, report only. TECHNIQUE: 63 mL Isovue-370 IV contrast. Multiplanar reformat. This exam was performed according to our departmental dose-optimization program, which includes automated exposure control, adjustment of the mA and/or kV according to patient size and/or use of iterative reconstruction technique. FINDINGS: No pulmonary embolus. No right ventricular strain. Mild bilateral perinephric fat stranding and minimal left perinephric fluid. 0.8 cm likely benign left renal low-attenuation lesion not definitively characterized. Old granulomatous disease of the mediastinum. Small coronary troll calcification. Calcified splenic granulomata. Moderate disc desiccation. Inferior neck, axillae, mediastinum, lungs, airway, lymphatics, heart, vasculature, upper abdomen, and musculoskeleton appear otherwise unremarkable. Impression: 1. No acute cardiopulmonary findings. No pulmonary embolus. 2. Mild bilateral perinephric fat stranding and small left perinephric fluid; nonspecific.
[2017-06-28 03:33] LABS: APPEARANCE,URINE CLEAR; BILIRUBIN,URINE NEGATIVE (NEGATIVE); COLOR,URINE YELLOW; GLUCOSE, URINE NEGATIVE (NEGATIVE); KETONES,URINE 20 mg/dL (NEGATIVE); LEUKOCYTE ESTERASE,URINE NEGATIVE (NEGATIVE); NITRITE,URINE NEGATIVE (NEGATIVE); PROTEIN,URINE NEGATIVE (NEGATIVE); URINE SPECIFIC GRAVITY 1.036
[2017-06-28] MEDS ORDERED: ASPIRIN 81 MG TABLET, CHEWABLE PO ONE (03:54)
[2017-06-28] MEDS ORDERED: OXYCODONE-ACETAMINOPHEN 5-325 MG TABLET PO PRN (04:06)
[2017-06-28] MEDS ORDERED: ONDANSETRON HCL INJ/PF 4 MG/2 ML SDV IV PRN (04:06)
[2017-06-28] MEDS ORDERED: NITROGLYCERIN 0.4 MG/TAB 25 TAB/BOTTLE SL PRN (04:15)
[2017-06-28] MEDS ORDERED: DEXTROSE 40% GEL 15 GM TUBE PO PRN ×2 (04:18)
[2017-06-28] MEDS ORDERED: INSULIN REG, HUMAN 100 UNIT/ML 3 ML VIAL (PYX) SUBCUT PRN (04:18)
[2017-06-28] MEDS ORDERED: GLUCAGON,HUMAN RECOMB 1 MG INJ IM PRN (04:18)
[2017-06-28] MEDS ORDERED: DEXTROSE 50%-WATER 25 GM/50 ML DISP.SYRIN IV PRN ×2 (04:18)
--- NOTE | 2017-06-28 04:36 | PDOC H&P ---
History of Present Illness Admission Date/PCP: 06/28/17 04:10 ED IQBAL MD History of Present Illness: ED BUENO is a 77 year old male patient with past medical history of A. fib, type 2 diabetes mellitus, hypertension and hyperlipidemia, presents with chest pain 24 hours duration. Patient has been in his usual baseline state of health up until yesterday morning when he started to have chest pain localized to his left precordium described as tightness and it is nonradiating. The chest pain is not associated with deep breathing or shortness of breath. He had associated nausea and diaphoresis. Patient had recent neck surgery at [facility]. Of note patient had cardiac stress test in May 06, 2017 and reportedly it was normal. He denies any fever, cough, palpitation, vomiting, abdominal pain or diarrhea. He does not have any urinary complaints. No orthopnea or paroxysmal dyspnea. No history of fascia or leg swelling. No headache or dizziness. Past Medical History Cardiac Medical History: Reports: Atrial Fibrillation, Hyperlipidema, Heart Murmur - req sbe prophylaxis Denies: Myocardial Infarction, Hypertension Pulmonary Medical History: Denies: Asthma Neurological Medical History: Denies: Seizures Endocrine Medical History: Reports: Diabetes Mellitus Type 2 GI Medical History: Denies: Hepatitis, Hiatal Hernia Musculoskeltal Medical History: Reports: Arthritis Hematology: Denies: Anemia, Sickle Cell Disease Past Surgical History Past Surgical History: Reports: Orthopedic Surgery - knee right replacement, Other - Recent C3 through C5 neck surgery Denies: Pacemaker Social History Lives with: Spouse/Significant other Smoking Status: Never Smoker Hx Recreational Drug Use: No Family History Family History: Reviewed & Not Pertinent, Other - Unknown Parental Family History Reviewed: Yes Children Family History Reviewed: Yes Sibling(s) Family History Reviewed.: Yes Medication/Allergy Home Medications: Dabigatran Etexilate Mesylate [Pradaxa 150 mg Capsule] 150 mg PO BID 06/12/12 Metformin HCl [Metformin HCl ER] 500 mg PO BID 06/12/12 Ascorbic Acid [Vitamin C 500 mg Tablet] 500 mg PO DAILY 09/18/12 Diltiazem HCl [Cardizem Cd 180 mg Capsule] 180 mg PO DAILY 09/18/12 Garlic [Odorless Garlic] 500 mg PO DAILY 09/18/12 Gluc Quiroga/Chondro Quiroga A/Vit C/Mn [Glucosamine 1,500 Complex Cap] 1 each PO DAILY Multivitamin [Multiple Vitamins] 1 each PO DAILY 09/18/12 [place]-3 Fatty Acids/Fish Oil [Fish Oil 1,200 mg Softgel] 1 each PO DAILY Rosuvastatin Calcium [Crestor 20 mg Tablet] 20 mg PO DAILY 09/18/12 Oxycodone HCl/Acetaminophen [Percocet 10-325 Mg Tablet] 1 each PO BID 10/21/16 Promethazine HCl [Phenergan 25 mg Tablet] 25 - 50 mg PO ASDIR PRN #12 tablet 04/08 Metaxalone [Skelaxin 800 mg Tablet] 800 mg PO ASDIR PRN #20 tablet 04/19/17 Tamsulosin HCl [Flomax 0.4 mg Cap.sr] 0.4 mg PO DAILY #7 cap.sr.24h 04/19/17 Allergies/Adverse Reactions: No Known Allergies Allergy (Verified 04/20/17 10:40) Review of Systems Constitutional: PRESENT: as per HPI Ears: PRESENT: as per HPI Cardiovascular: PRESENT: as per HPI Gastrointestinal: PRESENT: as per HPI Neurological: PRESENT: as per HPI Physical Exam Vital Signs: Temp Pulse Resp BP Pulse Ox 97.5 F 88 12 137/95 H 97 06/28/17 04:16 06/27/17 23:49 06/28/17 04:01 06/28/17 04:01 06/28/17 04:01 General appearance: PRESENT: no acute distress Head exam: PRESENT: atraumatic, normocephalic Eye exam: PRESENT: conjunctiva pink, EOMI, PERRLA. ABSENT: scleral icterus Neck exam: PRESENT: tenderness Cardiovascular exam: PRESENT: diastolic murmur GI/Abdominal exam: PRESENT: normal bowel sounds, soft. ABSENT: distended, guarding, mass, organolmegaly, rebound, tenderness Neurological exam: PRESENT: alert, oriented to time, oriented to situation Results Impressions: Chest X-Ray 06/28/17 00:00 IMPRESSION: No acute cardiopulmonary findings. Assessment & Plan - Diagnosis (1) Chest pain Qualifiers: Chest pain type: other chest pain Qualified Code(s): R07.89 - Other chest pain; R07.8 - Other chest pain Is this a current diagnosis for this admission?: Yes Plan: Since patient has multiple risk factors for coronary artery disease we will keep him for observation. We will trend his cardiac enzymes and repeat EKG patient had cardiac stress test in May 06, 2017 I do not think he needs another stress test was his chest pain subsided and his troponins was negative for can be discharged tomorrow. Meantime we will put him on continuous basketball commentator, Percocet and nitroglycerin for his chest pain (2) Atrial fibrillation Qualifiers: Atrial fibrillation type: chronic Qualified Code(s): I48.2 - Chronic atrial fibrillation Is this a current diagnosis for this admission?: Yes Plan: His heart rate is well controlled. I will continue his Pradaxa for anticoagulation. (3) Diabetes 1.5, managed as type 2 Is this a current diagnosis for this admission?: Yes Plan: We will put him on sliding scale and continue his metformin. - Time Critical Time spent with patient: 25-34 minutes
[2017-06-28] MEDS: LANSOPRAZOLE 30 MG TAB.RAP.DR PO SCH (05:36)
[2017-06-28 06:35] LABS: HEMATOCRIT 39.8 % (37.9-51.0); HEMOGLOBIN 13.6 g/dL (13.5-17.0); MEAN CORPUSCULAR HEMOGLOBIN 31.2 pg (27.0-33.4); MEAN CORPUSCULAR HGB CONC 34.3 g/dL (32.0-36.0); MEAN CORPUSCULAR VOLUME 91 fl (80-97); PLATELET COUNT 205 10^3/uL (150-450); RED BLOOD COUNT 4.37 10^6/uL (4.35-5.55); WHITE BLOOD COUNT 6.6 10^3/uL (4.0-10.5)
[2017-06-28 06:40] LABS: ANION GAP 14 (5-19); BLOOD UREA NITROGEN 15 mg/dL (7-20); CALCIUM 9.3 mg/dL (8.4-10.2); CARBON DIOXIDE 22 mmol/L (22-30); CHLORIDE 105 mmol/L (98-107); GLUCOSE 100 mg/dL (75-110); POTASSIUM 4.2 mmol/L (3.6-5.0); SODIUM 140.7 mmol/L (137-145)
--- NOTE | 2017-06-28 09:50 | EKG REPORT ---
SEVERITY:- ABNORMAL ECG - ATRIAL FIBRILLATION LOW VOLTAGE IN FRONTAL LEADS BORDERLINE T ABNORMALITIES, INFERIOR LEADS : Confirmed by: Pascual Gonzalez 28-Jun-2017 09:49:12
[2017-06-28] MEDS: DABIGATRAN ETEXILATE 150 MG CAPSULE PO SCH ×2 (09:52→22:10)
[2017-06-28] MEDS: METFORMIN HCL 500 MG TABLET PO SCH ×2 (09:54→18:12)
[2017-06-28] MEDS: DOCUSATE SODIUM 100 MG CAPSULE PO SCH (09:54)
[2017-06-28] MEDS ORDERED: NORMAL SALINE 1000 ML 1,000 ML IV PRN (09:57)
[2017-06-28] MEDS ORDERED: DABIGATRAN ETEXILATE 150 MG CAPSULE PO SCH (10:00)
[2017-06-28] MEDS: CYCLOBENZAPRINE HCL 10 MG TABLET PO PRN (11:45)
[2017-06-28] MEDS: MULTIVITAMIN TABLET PO SCH (11:45)
[2017-06-28] MEDS ORDERED: OXYCODONE-ACETAMINOPHEN 5-325 MG TABLET ONE (11:52)
[2017-06-28] MEDS ORDERED: ASCORBIC ACID 500 MG TABLET PO ONE (12:00)
[2017-06-28] MEDS ORDERED: ASPIRIN 81 MG TABLET, ENT COATED PO ONE (12:00)
--- NOTE | 2017-06-28 13:59 | PDOC CONSULTATION ---
Consultation Consult Date: 06/28/17 Consult reason:: Chest pain History of Present Illness Admission Date/PCP: 06/28/17 04:10 ED IQBAL MD History of Present Illness: It is a very pleasant 77-year-old male with past medical history of diabetes mellitus, hypertension, hyperlipidemia, atrial fibrillation on anticoagulation was admitted with complaints of chest pain. Patient claims that he follows with a machine assistant in [place] and last month had a stress test which he was told was negative for ischemia. He was told that he needs to see his machine assistant back in a year. He recently underwent cervical spine surgery and was at home yesterday recovering from the surgery when he developed midsternal chest discomfort which he describes as a tightness with no radiation to the neck or jaw. He denied any associated shortness of breath or diaphoresis but did have some nausea. He claims that after he arrived in the hospital his pain resolved and he has not had any more chest pain while being in the hospital. He does complain of nausea at this time but denies any abdominal pain. He has a history of atrial fibrillation and is on Pradaxa at home. Denies any bleeding per rectum or black stools. He denies any swelling of his lower extremities. He is and lives with his . He denies history of active cigarette smoking or alcohol abuse. Past Medical History Cardiac Medical History: Reports: Atrial Fibrillation, Hyperlipidema, Heart Murmur - req sbe prophylaxis Denies: Myocardial Infarction, Hypertension Pulmonary Medical History: Denies: Asthma Neurological Medical History: Denies: Seizures Endocrine Medical History: Reports: Diabetes Mellitus Type 2 GI Medical History: Denies: Hepatitis, Hiatal Hernia Musculoskeltal Medical History: Reports: Arthritis Hematology: Denies: Anemia, Sickle Cell Disease Past Surgical History Past Surgical History: Reports: Orthopedic Surgery - knee right replacement, Other - Recent C3 through C5 neck surgery Denies: Pacemaker Social History Lives with: Spouse/Significant other Smoking Status: Never Smoker Hx Recreational Drug Use: No Family History Family History: Reviewed & Not Pertinent, Other - Unknown Parental Family History Reviewed: Yes Children Family History Reviewed: Yes Sibling(s) Family History Reviewed.: Yes Medication/Allergy Home Medications: Ascorbic Acid [Vitamin C 500 mg Tablet] 500 mg PO DAILY 06/28/17 Aspirin [Aspirin EC] 81 mg PO DAILY 06/28/17 Bee Pollen 550 mg PO DAILY 06/28/17 Dabigatran Etexilate Mesylate [Pradaxa 150 mg Capsule] 150 mg PO Q12 06/28/17 Diltiazem HCl [Cardizem Cd 120 mg Capsule] 120 mg PO QHS 06/28/17 Gabapentin Enacarbil [Horizant] 600 mg PO BID 06/28/17 Garlic [Odorless Garlic] 500 mg PO DAILY 06/28/17 Gluc Quiroga/Chondro Quiroga A/Vit C/Mn [Glucosamine Chondroitin Tab] 1 tab PO DAILY 06/28 Krill/[place]-3/Dha/Epa/Lipids [[place]-3 Krill Oil 300 mg Sftg] 1 cap PO DAILY 11/07 Metformin HCl [Glucophage 500 mg Tablet] 500 mg PO BID 06/28/17 Multivitamin [Multiple Vitamins] 1 tab PO DAILY 06/28/17 Oxycodone HCl/Acetaminophen [Percocet 10-325 mg Tablet] 1 tab PO Q8HP PRN Rosuvastatin Calcium [Crestor 20 mg Tablet] 20 mg PO QHS 06/28/17 Allergies/Adverse Reactions: No Known Allergies Allergy (Verified 04/20/17 10:40) Review of Systems Gastrointestinal: PRESENT: nausea Physical Exam Vital Signs: Temp Pulse Resp BP Pulse Ox 98.4 F 84 16 111/62 96 06/28/17 07:48 06/28/17 07:48 06/28/17 07:48 06/28/17 07:48 06/28/17 07:48 Intake & Output 06/27/17 06/28/17 06/29/17 06:59 06:59 06:59 Weight 68.3 kg General appearance: PRESENT: no acute distress Neck exam: PRESENT: other - Suture line on the front of the neck appears intact. Steri-Strips noted over it. Pulses: PRESENT: +2 pedal pulses bilateral GI/Abdominal exam: PRESENT: soft Results Laboratory Results: 06/28/17 05:49 06/28/17 05:49 06/28/17 06/28/17 05:49 05:49 WBC 6.6 RBC 4.37 Hgb 13.6 Hct 39.8 MCV 91 MCH 31.2 MCHC 34.3 RDW 14.0 Plt Count 205 Sodium 140.7 Potassium 4.2 Chloride 105 Carbon Dioxide 22 Anion Gap 14 BUN 15 Creatinine 0.67 Est GFR ( Amer) > 60 Est GFR (Non-Af Amer) > 60 Glucose 100 Calcium 9.3 06/28/17 05:49 Troponin I < 0.012 EKG Comments: EKG showed atrial fibrillation with low voltage in limb leads. Wandering baseline in inferior leads limits interpretation of ST changes. Impressions: Chest X-Ray 06/28/17 00:00 IMPRESSION: No acute cardiopulmonary findings. Assessment & Plan - Diagnosis (1) Chest pain Qualifiers: Chest pain type: unspecified Qualified Code(s): R07.9 - Chest pain, unspecified Is this a current diagnosis for this admission?: Yes (2) Atrial fibrillation Qualifiers: Atrial fibrillation type: chronic Qualified Code(s): I48.2 - Chronic atrial fibrillation Is this a current diagnosis for this admission?: Yes (3) Hypertension Qualifiers: Hypertension type: essential hypertension Qualified Code(s): I10 - Essential (primary) hypertension Is this a current diagnosis for this admission?: Yes (4) Diabetes 1.5, managed as type 2 Is this a current diagnosis for this admission?: Yes - Notes Notes: Patient appears euvolemic on exam with blood pressure well controlled at this time. His cardiac biomarkers have been negative for acute coronary syndrome. With a history of a recent stress test which was negative per patient and his recent cervical spine surgery we would recommend a more conservative approach to his management unless he has brad anginal symptoms. We will recommend getting a copy of his nuclear stress test and echocardiogram results for our review. Will recommend continuation of his aspirin, statin and consider a long- acting nitrate if blood pressure allows. He is currently on a calcium channel catalino for rate control and Pradaxa for systemic anticoagulation. Would treat his nausea symptomatically with Zofran as needed. Would recommend ambulating patient and if he remains chest pain-free on exertion would favor patient following with his primary machine assistant in a week or so.
[2017-06-28] MEDS ORDERED: ISOSORBIDE MONONITRATE 30 MG TAB.ER.24H PO ONE (15:30)
[2017-06-28] MEDS: OXYCODONE-ACETAMINOPHEN 5-325 MG TABLET PO PRN (18:12)
[2017-06-28] MEDS ORDERED: (PENDING PHARMACY ID) (Rosuvastatin Calcium [Crestor 20 Mg Tablet] 20 MG) PO SCH (22:00)
[2017-06-28] MEDS: ATORVASTATIN CALCIUM 40 MG TABLET PO SCH (22:10)
[2017-06-28] MEDS: DILTIAZEM HCL 120 MG CAP.SR.24H PO SCH (22:11)
[2017-06-29] MEDS: LANSOPRAZOLE 30 MG TAB.RAP.DR PO SCH (04:23)
[2017-06-29 04:44] LABS: HEMATOCRIT 36.9 % (37.9-51.0); HEMOGLOBIN 12.7 g/dL (13.5-17.0); MEAN CORPUSCULAR HEMOGLOBIN 31.3 pg (27.0-33.4); MEAN CORPUSCULAR HGB CONC 34.5 g/dL (32.0-36.0); MEAN CORPUSCULAR VOLUME 91 fl (80-97); PLATELET COUNT 212 10^3/uL (150-450); RED BLOOD COUNT 4.06 10^6/uL (4.35-5.55); RED CELL DISTRIBUTION WIDTH 13.8 % (11.5-14.0); WHITE BLOOD COUNT 7.6 10^3/uL (4.0-10.5)
[2017-06-29 05:09] LABS: ANION GAP 5 (5-19); BLOOD UREA NITROGEN 12 mg/dL (7-20); CALCIUM 9.3 mg/dL (8.4-10.2); CARBON DIOXIDE 30 mmol/L (22-30); CHLORIDE 106 mmol/L (98-107); GLUCOSE 106 mg/dL (75-110); POTASSIUM 4.1 mmol/L (3.6-5.0); SODIUM 140.8 mmol/L (137-145)
[2017-06-29] MEDS: OXYCODONE-ACETAMINOPHEN 5-325 MG TABLET PO PRN ×2 (08:34→14:20)
[2017-06-29] MEDS: METFORMIN HCL 500 MG TABLET PO SCH ×2 (08:34→16:42)
[2017-06-29] MEDS: ISOSORBIDE MONONITRATE 30 MG TAB.ER.24H PO SCH (10:24)
[2017-06-29] MEDS: CYCLOBENZAPRINE HCL 10 MG TABLET PO PRN ×2 (10:24→21:39)
[2017-06-29] MEDS: DABIGATRAN ETEXILATE 150 MG CAPSULE PO SCH ×2 (10:24→21:39)
[2017-06-29] MEDS: ASPIRIN 81 MG TABLET, ENT COATED PO SCH (10:24)
[2017-06-29] MEDS: ASCORBIC ACID 500 MG TABLET PO SCH (10:24)
[2017-06-29] MEDS: DOCUSATE SODIUM 100 MG CAPSULE PO SCH (10:24)
[2017-06-29] MEDS: MULTIVITAMIN TABLET PO SCH (11:59)
[2017-06-29] MEDS: MORPHINE SULFATE 10 MG/5 ML ORAL SOLUTION UDCUP PO PRN (16:42)
[2017-06-29] MEDS: ATORVASTATIN CALCIUM 40 MG TABLET PO SCH (21:38)
[2017-06-29] MEDS: DILTIAZEM HCL 120 MG CAP.SR.24H PO SCH (21:38)
[2017-06-30] MEDS: MORPHINE SULFATE 10 MG/5 ML ORAL SOLUTION UDCUP PO PRN ×2 (02:25→10:25)
[2017-06-30] MEDS ORDERED: ACETAMINOPHEN 325 MG TABLET PO ONE (05:15)
[2017-06-30] MEDS: LANSOPRAZOLE 30 MG TAB.RAP.DR PO SCH (05:19)
--- NOTE | 2017-06-30 07:14 | PDOC PROGRESS REPORT ---
Subjective Progress Note for:: 06/29/17 Subjective:: ED BUENO is a 77 year old male who presents to [facility] for chest pain. He recently underwent cervical spine surgery and was at home 4/7 recovering from the surgery when he developed midsternal chest discomfort which he describes as a tightness with no radiation to the neck or jaw. He denied any associated shortness of breath or diaphoresis but did have some nausea. He claims that after he arrived in the hospital his pain resolved and he has not had any more chest pain while being in the hospital. Patient seen on morning rounds, he is resting in bed complaining of L neck and shoulder stiffness. He states the PRN Flexeril helps to 'somewhat' alleviate his discomfort, but the percocet is not offering relief. The pain is reproducible with movement and palpation. The patient expresses concern that maybe something went wrong with his surgery, and that is why he is having so much post-op pain. Of note, the patient was supposed to have post-op physical therapy but has not started. Reason For Visit: CHEST PAIN Physical Exam Vital Signs: Temp Pulse Resp BP Pulse Ox 98.3 F 85 14 121/78 96 06/30/17 04:23 06/30/17 04:23 06/30/17 04:23 06/30/17 04:23 06/30/17 04:23 Intake & Output 06/28/17 06/29/17 06/30/17 06:59 06:59 06:59 Intake Total 1650 250 Output Total 1225 400 Balance 425 -150 Weight 68.3 kg 72.9 kg General appearance: PRESENT: no acute distress Eye exam: PRESENT: conjunctiva pink, PERRLA Mouth exam: PRESENT: moist Neck exam: ABSENT: full ROM Respiratory exam: PRESENT: clear to auscultation kaylan, symmetrical, unlabored Cardiovascular exam: PRESENT: +S1, +S2 Pulses: PRESENT: normal radial pulses, normal dorsalis pedis pul GI/Abdominal exam: PRESENT: normal bowel sounds, soft Rectal exam: PRESENT: deferred Extremities exam: PRESENT: full ROM Musculoskeletal exam: PRESENT: ambulatory, full ROM Neurological exam: PRESENT: alert, awake, oriented to person, oriented to place , oriented to time, oriented to situation, normal gait - PATIENT ENDORSES A GREAT DEAL OF NECK PAIN WHEN ATTEMPTING TO AMBULATE, HAS BEEN USING BEDSIDE COMMODE INSTEAD OF WALKING TO BATHROOM Psychiatric exam: PRESENT: appropriate affect Results Laboratory Results: 06/29/17 04:04 06/29/17 04:04 06/28/17 06/29/17 05:49 04:04 Troponin I < 0.012 < 0.012 Impressions: Chest X-Ray 06/28/17 00:00 IMPRESSION: No acute cardiopulmonary findings. Status: Imported from PACS Assessment & Plan - Diagnosis (1) Chest pain Qualifiers: Chest pain type: unspecified Qualified Code(s): R07.9 - Chest pain, unspecified Is this a current diagnosis for this admission?: Yes Plan: Patient endorses history of chest pain on 06/27 prior to coming to the hospital. He has been chest pain free since arrival. EKG shows AFIB, no infarct of ischemia. Patient has hx of AFIB. Troponin < 0.012 Patient has previous ECHO prior to surgery, which was normal. Cardiology consulted No plan for repeat ECHO or stress test, per Dr. Bush Continue ASA and statin, initiated IMDUR yesterday. Patient seems to be tolerating it well. 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 Nursing staff endorses that they have to crush most of his pills in applesauce Currently on flexeril and Percocet. Patient states that the Percocet does not work very well for his pain Plan to add liquid morphine to regimen Strongly encouraged patient to reschedule his follow up appointment with surgeon. The patient states he is waiting for his doctor to come to [place] , so he doesn't have to drive all the way to [place]. His appointment isn't for another 10 days. Encouraged patient to schedule something at an earlier date , even if it means having to drive to [place]. (3) Diabetes 1.5, managed as type 2 Is this a current diagnosis for this admission?: Yes Plan: History of DM Currently on metformin and sliding scale insulin with humalog (4) Hypertension Qualifiers: Hypertension type: essential hypertension Qualified Code(s): I10 - Essential (primary) hypertension Is this a current diagnosis for this admission?: Yes Plan: Continue home dose antihypertensives (5) Atrial fibrillation Qualifiers: Atrial fibrillation type: chronic Qualified Code(s): I48.2 - Chronic atrial fibrillation Is this a current diagnosis for this admission?: Yes Plan: History of AFIB, rate controlled. Patient on Pradaxa for systemic anticoagulation. - Time Medications reviewed and adjusted accordingly: Yes Anticipated discharge: Home Within: within 24 hours - Inpatient Certification Based on my medical assessment, after consideration of the patient's comorbidities, presenting symptoms, or acuity I expect that the services needed warrant INPATIENT care.: Yes I certify that my determination is in accordance with my understanding of Medicare's requirements for reasonable and necessary INPATIENT services [42 CFR 412.3e].: Yes Medical Necessity: Risk of Complication if Not Cared For in Hospital - Plan Summary Plan Summary: PLAN TO DISCHARGE THE PATIENT HOME TOMORROW WITH LIQUID MORPHINE AND ENCOURAGE HIM TO FOLLOW UP WITH HIS SURGEON (SOONER THAN THE SCHEDULED APPT IN 10 DAYS). ADDITIONALLY, WILL SEND THE PATIENT HOME WITH HOME HEALTH/PT
[2017-06-30 09:48] VITALS: BP 113/61
[2017-06-30] MEDS: ASCORBIC ACID 500 MG TABLET PO SCH (10:23)
[2017-06-30] MEDS: ASPIRIN 81 MG TABLET, ENT COATED PO SCH (10:23)
[2017-06-30] MEDS: DOCUSATE SODIUM 100 MG CAPSULE PO SCH (10:23)
[2017-06-30] MEDS: CYCLOBENZAPRINE HCL 10 MG TABLET PO PRN (10:23)
[2017-06-30] MEDS: ISOSORBIDE MONONITRATE 30 MG TAB.ER.24H PO SCH (10:23)
[2017-06-30] MEDS: DABIGATRAN ETEXILATE 150 MG CAPSULE PO SCH (10:25)
--- NOTE | 2017-06-30 10:46 | PDOC PROGRESS REPORT ---
Subjective Progress Note for:: 06/29/17 Subjective:: Neck pain. On questioning patient denied any chest pain. She is denying any shortness of breath. Patient cooperating reasonably well. Telemetry strips shows patient maintaining atrial fibrillation. Reason For Visit: CHEST PAIN Physical Exam Vital Signs: Temp Pulse Resp BP Pulse Ox 97.8 F 60 14 106/71 97 06/29/17 15:29 06/29/17 15:29 06/29/17 15:29 06/29/17 15:29 06/29/17 15:29 Intake & Output 06/28/17 06/29/17 06/30/17 06:59 06:59 06:59 Intake Total 1650 250 Output Total 1225 400 Balance 425 -150 Weight 68.3 kg 72.9 kg Exam: GENERAL: well-nourished and in no acute distress. Alert and oriented x3 HEAD: Atraumatic, normocephalic. Patient has significant neck tenderness being postsurgical. EYES: Pupils equal round and reactive to light, extraocular movements intact, sclera anicteric, conjunctiva are normal. ENT: TMs normal, nares patent, oropharynx clear without exudates. Moist mucous membranes. No oral ulcerations or bleeding gums noted NECK: supple without lymphadenopathy. Trachea is central. No cervical or axillary lymphadenopathy noted. Carotids are 2+, JVD WNL LUNGS: Respiration seems nonlabored, no significant accessory muscle action noted. Breath sounds clear to auscultation bilaterally and equal noted. No wheezes rales or rhonchi noted. No significant dullness noted on percussion. CHEST: Palpation of the chest wall shows no significant chest wall tenderness. No other significant abnormalities noted. 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 ABDOMEN: Soft, no significant tenderness appreciated, normoactive bowel sounds. No guarding, no rebound. No rigidity noted . No masses appreciated. EXTREMITIES: Pedal pulses are 1-2+, no calf tenderness noted. No clubbing or cyanosis. negative pedal edema noted NEUROLOGICAL: Focused neurological exam showed no significant neurologic deficit. Normal speech, no focal weakness appreciated. PSYCH: Normal mood, normal affect. Judgment and insight within normal limits. SKIN: No significant ecchymosis, skin is noted to be warm. MUSCULOSKELETAL EXAM: No significant acute joint swelling noted. Results Laboratory Results: 06/29/17 04:04 06/29/17 04:04 06/29/17 06/29/17 04:04 04:04 WBC 7.6 RBC 4.06 L Hgb 12.7 L Hct 36.9 L MCV 91 MCH 31.3 MCHC 34.5 RDW 13.8 Plt Count 212 Sodium 140.8 Potassium 4.1 Chloride 106 Carbon Dioxide 30 Anion Gap 5 BUN 12 Creatinine 0.73 Est GFR ( Amer) > 60 Est GFR (Non-Af Amer) > 60 Glucose 106 Calcium 9.3 06/28/17 06/29/17 05:49 04:04 Troponin I < 0.012 < 0.012 EKG Comments: Telemetry strips shows sinus rhythm without any sustained tachycardia or bradycardia. Impressions: Chest X-Ray 06/28/17 00:00 IMPRESSION: No acute cardiopulmonary findings. Assessment & Plan - Diagnosis (1) Chest pain Qualifiers: Chest pain type: other chest pain Qualified Code(s): R07.89 - Other chest pain; R07.8 - Other chest pain Is this a current diagnosis for this admission?: Yes (2) Hyperlipidemia Qualifiers: Hyperlipidemia type: unspecified Qualified Code(s): E78.5 - Hyperlipidemia , unspecified Is this a current diagnosis for this admission?: Yes (3) Hypertension Qualifiers: Hypertension type: essential hypertension Qualified Code(s): I10 - Essential (primary) hypertension Is this a current diagnosis for this admission?: Yes (4) Atrial fibrillation Qualifiers: Atrial fibrillation type: chronic Qualified Code(s): I48.2 - Chronic atrial fibrillation Is this a current diagnosis for this admission?: Yes - Notes Notes: Chest pain: [place] to be noncardiac possibly referred pain from neck. 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 Patient should follow-up with him. Patient also had a recent stress test. Dyslipidemia: Continue current statin therapy. Hypertension: Blood pressure under reasonable control. Continue current antihypertensives. Atrial fibrillation: Recommend rate control and chronic anticoagulation. I believe chronic anticoagulation can be restarted. - Time Time with patient: 15-25 minutes - CODE STATUS was discussed, patient remains full code. Surrogate decision-maker patient's . Multiple medical problems were addressed. More than 50% of the time spent coordinating care, discussing management plans with involved caregivers. Management plans discussed with involved personnels. Medical decision making was of moderate to high complexity , patient's has multiple comorbidities. Medications reviewed and adjusted accordingly: Yes
--- NOTE | 2017-06-30 10:49 | PDOC PROGRESS REPORT ---
Subjective Progress Note for:: 06/30/17 Subjective:: Patient complains of significant neck pain. On questioning patient denied any chest pain. Patient is denying any shortness of breath. Patient recuperating reasonably well. Telemetry strips shows patient maintaining atrial fibrillation. Reason For Visit: CHEST PAIN Physical Exam Vital Signs: Temp Pulse Resp BP Pulse Ox 98.3 F 86 14 113/61 96 06/30/17 09:44 06/30/17 09:44 06/30/17 09:44 06/30/17 09:44 06/30/17 09:44 Intake & Output 06/29/17 06/30/17 07/01/17 06:59 06:59 06:59 Intake Total 1650 1250 Output Total 1225 1725 Balance 425 -475 Weight 72.9 kg 73.8 kg Exam: GENERAL: well-nourished and in no acute distress. Alert and oriented x3 HEAD: Atraumatic, normocephalic. Significant neck tenderness noted. EYES: Pupils equal round and reactive to light, extraocular movements intact, sclera anicteric, conjunctiva are normal. ENT: TMs normal, nares patent, oropharynx clear without exudates. Moist mucous membranes. No oral ulcerations or bleeding gums noted NECK: supple without lymphadenopathy. Trachea is central. No cervical or axillary lymphadenopathy noted. Carotids are 2+, JVD WNL LUNGS: Respiration seems nonlabored, no significant accessory muscle action noted. Breath sounds clear to auscultation bilaterally and equal noted. No wheezes rales or rhonchi noted. No significant dullness noted on percussion. CHEST: Palpation of the chest wall shows no significant chest wall tenderness. No other significant abnormalities noted. 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 ABDOMEN: Soft, no significant tenderness appreciated, normoactive bowel sounds. No guarding, no rebound. No rigidity noted . No masses appreciated. EXTREMITIES: Pedal pulses are 1-2+, no calf tenderness noted. No clubbing or cyanosis. negative pedal edema noted NEUROLOGICAL: Focused neurological exam showed no significant neurologic deficit. Normal speech, no focal weakness appreciated. PSYCH: Normal mood, normal affect. Judgment and insight within normal limits. SKIN: No significant ecchymosis, skin is noted to be warm. MUSCULOSKELETAL EXAM: No significant acute joint swelling noted. Results Laboratory Results: 06/29/17 04:04 06/29/17 04:04 06/28/17 06/29/17 05:49 04:04 Troponin I < 0.012 < 0.012 EKG Comments: Telemetry shows atrial fibrillation with controlled ventricular response. Impressions: Chest X-Ray 06/28/17 00:00 IMPRESSION: No acute cardiopulmonary findings. Assessment & Plan - Diagnosis (1) Chest pain Qualifiers: Chest pain type: other chest pain Qualified Code(s): R07.89 - Other chest pain; R07.8 - Other chest pain Is this a current diagnosis for this admission?: Yes (2) Hyperlipidemia Qualifiers: Hyperlipidemia type: unspecified Qualified Code(s): E78.5 - Hyperlipidemia , unspecified Is this a current diagnosis for this admission?: Yes (3) Hypertension Qualifiers: Hypertension type: essential hypertension Qualified Code(s): I10 - Essential (primary) hypertension Is this a current diagnosis for this admission?: Yes (4) Atrial fibrillation Qualifiers: Atrial fibrillation type: chronic Qualified Code(s): I48.2 - Chronic atrial fibrillation Is this a current diagnosis for this admission?: Yes - Notes Notes: Patient has remained stable from cardiac standpoint. As regards atrial fibrillation, his heart rate is well controlled and is currently on rate control and chronic anticoagulation is strategy. Blood pressure seems reasonably well controlled. Patient is on statin therapy. There has been no recurrence of chest pain. Patient has been stable from cardiac standpoint. At this point feel that it is safe for patient to be discharged on current regimen. 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 Will sign off. - Time Time with patient: 15-25 minutes - CODE STATUS was discussed, patient remains full code. Surrogate decision-maker patient's . Multiple medical problems were addressed. More than 50% of the time spent coordinating care, discussing management plans with involved caregivers. Management plans discussed with involved personnels. Medical decision making was of moderate to high complexity , patient's has multiple comorbidities. Medications reviewed and adjusted accordingly: Yes
[2017-06-30] MEDS: METFORMIN HCL 500 MG TABLET PO SCH (10:57)
--- NOTE | 2017-06-30 20:09 | PDOC DISCHARGE SUMMARY ---
General - Admit/Disc Date/PCP Admission Date/Primary Care Provider: 06/28/17 04:10 ED IQBAL MD Discharge Date: 06/30/17 - Discharge Diagnosis (1) Chest pain Is this a current diagnosis for this admission?: Yes Summary: The patient was admitted for chest pain rule out for report of pain prior to arrival at hospital. He has remained chest pain since admission; however, does continue to endorse neck and shoulder pain related to recent surgical procedure. EKG demonstrated AFIB without evidence of infarct or ischemia. Serial troponins remained normal. Cardiology was consulted given his recent surgery complicated the pain presentation. Cardiology reviewed previous ECHO from prior to surgery, which was normal. The patient additionally reported a recent negative stress test. The patient's ASA and statin therapy was continued. He was started on IMDUR. HE is advised to have close follow up with his primary seismology technical officer upon discharge. (2) Diabetes 1.5, managed as type 2 Is this a current diagnosis for this admission?: Yes Summary: The patient's metformin and Humalog were continued with appropriate glucose control. (3) Post-operative pain Is this a current diagnosis for this admission?: Yes Summary: The patient underwent cervical spine surgery at [facility] approximately 1-2 weeks ago and continues to have left sided neck and shoulder pain with stiffness. The patient has reported difficulty with swallowing his pills since that time, however, does continue to have adequate p.o. nutritional intake on a mechanically soft diet. The patient's medications were adjusted to liquid or a crushable format where able. He is provided prescriptions for liquid morphine and lidocaine patches at discharge. He is advised to follow up with his surgeon at their first available appointment ; patient is encouraged to contact the surgeons office with concerns and request to move up the appointment date. (4) Atrial fibrillation Is this a current diagnosis for this admission?: Yes Summary: The patient is rate-controlled and on Pradaxa for chronic anticoagulation. (5) Hypertension Is this a current diagnosis for this admission?: Yes Summary: The patient's home medications were continued with adequate control of blood pressures. - Additional Information Discharge Diet: As Tolerated, Regular Discharge Activity: Activity As Tolerated Prescriptions: Cyclobenzaprine HCl [Flexeril 10 mg Tablet] 10 mg PO Q8HP PRN #10 tablet PRN Reason: Isosorbide Mononitrate [Imdur 30 mg Tablet.er] 30 mg PO DAILY #30 tab.er.24h Lansoprazole [Prevacid 30 mg Odt Tablet] 30 mg PO Q6AM #30 tab.rap. Lidocaine [Lidoderm 5% (700 mg) Transdermal Patch] 1 patch TP DAILY #30 adh..patch Morphine Sulfate 5 mg PO Q4HP PRN #30 ml PRN Reason: Nitroglycerin [Nitrostat 0.4 mg (1/150 Gr) Tabs 25/Bottle] 1 tab SL Q5MP PRN #1 bottle PRN Reason: Home Medications: Ascorbic Acid [Vitamin C 500 mg Tablet] 500 mg PO DAILY 06/28/17 Aspirin [Aspirin EC] 81 mg PO DAILY 06/28/17 Bee Pollen 550 mg PO DAILY 06/28/17 Dabigatran Etexilate Mesylate [Pradaxa 150 mg Capsule] 150 mg PO Q12 06/28/17 Diltiazem HCl [Cardizem Cd 120 mg Capsule] 120 mg PO QHS 06/28/17 Gabapentin Enacarbil [Horizant] 600 mg PO BID 06/28/17 Garlic [Odorless Garlic] 500 mg PO DAILY 06/28/17 Gluc Quiroga/Chondro Quiroga A/Vit C/Mn [Glucosamine Chondroitin Tab] 1 tab PO DAILY 06/28 Krill/[place]-3/Dha/Epa/Lipids [[place]-3 Krill Oil 300 mg Sftg] 1 cap PO DAILY 11/07 Metformin HCl [Glucophage 500 mg Tablet] 500 mg PO BID 06/28/17 Multivitamin [Multiple Vitamins] 1 tab PO DAILY 06/28/17 Oxycodone HCl/Acetaminophen [Percocet 10-325 mg Tablet] 1 tab PO Q8HP PRN Rosuvastatin Calcium [Crestor 20 mg Tablet] 20 mg PO QHS 06/28/17 Cyclobenzaprine HCl [Flexeril 10 mg Tablet] 10 mg PO Q8HP PRN #10 tablet Dabigatran Etexilate Mesylate [Pradaxa 150 mg Capsule] 150 mg PO Q12 #0 capsule 06/30/17 Docusate Sodium [Colace 100 mg Capsule] 100 mg PO DAILY capsule 06/30/17 Isosorbide Mononitrate [Imdur 30 mg Tablet.er] 30 mg PO DAILY #30 tab.er.24h 01/07 Lansoprazole [Prevacid 30 mg Odt Tablet] 30 mg PO Q6AM #30 tab. 06/30/17 Lidocaine [Lidoderm 5% (700 mg) Transdermal Patch] 1 patch TP DAILY #30 adh..patch 06/30/17 Metformin HCl [Glucophage 500 mg Tablet] 500 mg PO BIDACBS tablet 06/30/17 Morphine Sulfate 5 mg PO Q4HP PRN #30 ml 06/30/17 Nitroglycerin [Nitrostat 0.4 mg (1/150 Gr) Tabs 25/Bottle] 1 tab SL Q5MP PRN #1 bottle 06/30/17 History of Present Illness History of Present Illness: Per H&P by Dr. Payne: ED BUENO is a 77 year old male patient with past medical history of A. fib, type 2 diabetes mellitus, hypertension and hyperlipidemia, presents with chest pain 24 hours duration. Patient has been in his usual baseline state of health up until yesterday morning when he started to have chest pain localized to his left precordium described as tightness and it is nonradiating. The chest pain is not associated with deep breathing or shortness of breath. He had associated nausea and diaphoresis. Patient had recent neck surgery at [facility]. Of note patient had cardiac stress test in May 06, 2017 and reportedly it was normal. He denies any fever, cough, palpitation, vomiting, abdominal pain or diarrhea. He does not have any urinary complaints. No orthopnea or paroxysmal dyspnea. No history of fascia or leg swelling. No headache or dizziness. Physical Exam Vital Signs: Temp Pulse Resp BP Pulse Ox 98.3 F 86 14 113/61 96 06/30/17 09:44 06/30/17 09:44 06/30/17 09:44 06/30/17 09:44 06/30/17 09:44 Intake & Output 06/29/17 06/30/17 07/01/17 06:59 06:59 06:59 Intake Total 1650 1250 Output Total 1225 1725 Balance 425 -475 Weight 72.9 kg 73.8 kg General appearance: PRESENT: no acute distress, well-developed, well-nourished Head exam: PRESENT: atraumatic, normocephalic Eye exam: PRESENT: conjunctiva pink, EOMI, PERRLA. ABSENT: scleral icterus Ear exam: PRESENT: normal external ear exam Mouth exam: PRESENT: moist, tongue midline Neck exam: PRESENT: full ROM, tenderness - 2/2 recent cervical vertabra fusions. ABSENT: carotid bruit, JVD, lymphadenopathy, thyromegaly Respiratory exam: PRESENT: clear to auscultation kaylan. ABSENT: rales, rhonchi, wheezes Cardiovascular exam: PRESENT: irregular rhythm, +S1, +S2. ABSENT: diastolic murmur, rubs, systolic murmur Pulses: PRESENT: normal dorsalis pedis pul Vascular exam: PRESENT: normal capillary refill GI/Abdominal exam: PRESENT: normal bowel sounds, soft. ABSENT: distended, guarding, mass, organolmegaly, rebound, tenderness Rectal exam: PRESENT: deferred Extremities exam: PRESENT: full ROM. ABSENT: calf tenderness, clubbing, pedal edema Neurological exam: PRESENT: alert, awake, oriented to person, oriented to place , oriented to time, oriented to situation, CN II-XII grossly intact. ABSENT: motor sensory deficit Psychiatric exam: PRESENT: appropriate affect, normal mood. ABSENT: homicidal ideation, suicidal ideation Skin exam: PRESENT: dry, intact, warm. ABSENT: cyanosis, rash Results Laboratory Results: 06/29/17 04:04 06/29/17 04:04 06/28/17 06/29/17 05:49 04:04 Troponin I < 0.012 < 0.012 Impressions: Chest X-Ray 06/28/17 00:00 IMPRESSION: No acute cardiopulmonary findings. Qualifiers - * PATEINT BEING DISCHARGED WITH ANY OF THE FOLLOWING DIAGNOSIS?: No Plan Discharge Plan: Discharge to home with home health nursing, physical therapy, and occupational therapy. Follow up with primary care provider within 1 week. Follow up with established outpatient seismology technical officer as scheduled. Follow up with spine surgeon as scheduled, or sooner if able to move up appointment. Time Spent: Less than 30 Minutes
== END 2017-06-30 11:10 | disposition home health service (06) ==
LOC: ER 23:29 → EH 06-28 04:10 → 5 06-28 05:00
PROVIDERS: ADMIT Internal Medicine; ATTEND Internal Medicine
DX: R07.89 Other chest pain (principal); G89.18 Other acute postprocedural pain; M25.512 Pain in left shoulder; M54.2 Cervicalgia; I48.2 Chronic atrial fibrillation; E11.9 Type 2 diabetes mellitus without complications; M43.6 Torticollis; I10 Essential (primary) hypertension; E78.5 Hyperlipidemia, unspecified; R11.0 Nausea; K91.89 Other postprocedural complications and disorders of digestive system; R07.0 Pain in throat; R13.19 Other dysphagia; Y83.8 Other surgical procedures as the cause of abnormal reaction of the patient, or of later complication, without mention of misadventure at the time of the procedure; M19.90 Unspecified osteoarthritis, unspecified site; E86.0 Dehydration; R61 Generalized hyperhidrosis; M25.619 Stiffness of unspecified shoulder, not elsewhere classified; Z79.02 Long term (current) use of antithrombotics/antiplatelets; Z79.4 Long term (current) use of insulin; Z79.899 Other long term (current) drug therapy; Z79.82 Long term (current) use of aspirin; Z79.84 Long term (current) use of oral hypoglycemic drugs; Z85.46 Personal history of malignant neoplasm of prostate
CPT/HCPCS: 93005; 99285; 96361; 96374; 36415 ×3; 82553; 82962 ×3; 82550; 85025; 85027 ×2; 80048 ×2; 80053; 81001; 84484 ×3; 71045; 71275; 93010; A9270 ×26; J2270; J3490 ×2; J2405; J7030; G0378

== ENCOUNTER → 2017-07-07 | Outpatient (CLI) | payer MEDICARE, OTHER ==
[2017-07-07 17:09] LABS: NT PRO BNP 672 pg/mL (<450)
[2017-07-07 17:13] LABS: TROPONIN I < 0.012 ng/mL
== END ==
LOC: OD 15:14
PROVIDERS: ATTEND Obstetrics & Gynecology
DX: R06.02 Shortness of breath (principal); I48.91 Unspecified atrial fibrillation; I95.9 Hypotension, unspecified
CPT/HCPCS: 36415; 83880; 84484

== ENCOUNTER 2017-10-25 13:22 | Emergency (ER) | payer MEDICARE, OTHER ==
[2017-10-25] MEDS ORDERED: ASPIRIN 81 MG TABLET, CHEWABLE PO ONE (13:34)
--- NOTE | 2017-10-25 13:34 | ER Document Report ---
ED Medical Screen (RME) - General Mode of Arrival: Wheelchair Information source: Patient TRAVEL OUTSIDE OF THE U[place] IN LAST 30 DAYS: No <TITI FUENTES - Last Filed: 10/25/17 13:36> <GRACE MUNGUIA - Last Filed: 10/25/17 14:43> - General Chief Complaint: Abdominal Pain Stated Complaint: DECREASED APPETITE Time Seen by Provider: 10/25/17 13:28 Notes: Patient is a 77 year old male with high cholesterol, type 2 diabetes and a history of prostate cancer (treated with radiation) presents to the emergency department complaining of decreased appetite and chest pain onset yesterday. Patient states that his cat recently and he has been unable to eat or drink further stating he believes he is dehydrated. He states he just does not feel well. Patient states he has had similar symptoms in the past when a previous cat of his although they would normally last a couple of hours. Patient denies nausea, vomiting, trouble breathing or diarrhea. GENERAL: In a wheelchair.Alert, interacts well. No acute distress. HEAD: Normocephalic, Atraumatic. NECK: Full range of motion. Supple. Trachea midline. LUNGS: Clear to auscultation bilaterally, no wheezes, rales, or rhonchi. No respiratory distress. HEART: Regular rate and rhythm. No murmurs, gallops, or rubs. ABDOMEN: Soft, non-tender. Non-distended. Bowel sounds present in all 4 quadrants. EXTREMITIES: Moves all four extremities spontaneously. PSYCH: Normal affect, normal mood. I have greeted and performed a rapid initial assessment of this patient. A comprehensive ED assessment and evaluation of the patient, analysis of test results and completion of the medical decision making process will be conducted by additional ED providers (TITI FUENTES) - Related Data Allergies/Adverse Reactions: No Known Allergies Allergy (Verified 10/25/17 13:23) Past Medical History - Social History Chew tobacco use (# tins/day): No Frequency of alcohol use: None Drug Abuse: None - Past Medical History Cardiac Medical History: Reports: Hx Atrial Fibrillation, Hx Hypercholesterolemia, Hx Heart Murmur - req sbe prophylaxis Denies: Hx Heart Attack, Hx Hypertension Pulmonary Medical History: Denies: Hx Asthma Neurological Medical History: Denies: Hx Cerebrovascular Accident, Hx Seizures Endocrine Medical History: Reports: Hx Diabetes Mellitus Type 2 Renal/ Medical History: Reports: Hx Kidney Stones. Denies: Hx Peritoneal Dialysis Malignancy Medical History: Reports Hx Prostate Cancer GI Medical History: Denies: Hx Hepatitis, Hx Hiatal Hernia, Hx Ulcer Musculoskeltal Medical History: Reports Hx Arthritis, Reports Hx Musculoskeletal Deformity, Reports Hx Musculoskeletal Trauma Infectious Medical History: Denies: Hx Hepatitis Past Surgical History: Reports: Hx Orthopedic Surgery - knee right replacement, Other - Recent C3 through C5 neck surgery. Denies: Hx Open Heart Surgery, Hx Pacemaker - Immunizations Immunizations up to date: Yes Hx Diphtheria, Pertussis, Tetanus Vaccination: Yes <TITI FUENTES - Last Filed: 10/25/17 13:36> - Vital signs Vitals: Temp Pulse Resp BP Pulse Ox 97.6 F 91 16 130/71 H 97 10/25/17 13:26 10/25/17 13:26 10/25/17 13:26 10/25/17 13:26 10/25/17 13:26 Course - Laboratory Result Diagrams: 10/25/17 13:45 10/25/17 13:45 <GRACE MUNGUIA - Last Filed: 10/25/17 14:43> - Vital Signs Vital signs: Temp Pulse Resp BP Pulse Ox 97.6 F 91 16 130/71 H 97 10/25/17 13:26 10/25/17 13:26 10/25/17 13:26 10/25/17 13:26 10/25/17 13:26 - Laboratory Laboratory results interpreted by me: 10/25/17 10/25/17 13:45 13:45 RDW 15.0 H Seg Neutrophils % 82.9 H Lymphocytes % 8.5 L Sodium 145.7 H Glucose 258 H Total Bilirubin 1.6 H Doctor's Discharge <TITI FUENTES - Last Filed: 10/25/17 13:36> <GRACE MUNGUIA - Last Filed: 10/25/17 14:43> - Discharge Referrals: ED IQBAL MD [Primary Care Provider] - Follow up as needed
[2017-10-25] MEDS ORDERED: NORMAL SALINE 1000 ML 1,000 ML IV ONE ×2 (13:35→16:28)
[2017-10-25 14:10] LABS: ABSOLUTE EOSINOPHILS # (AUTO) 0.1 10^3/uL (0.0-0.6); ABSOLUTE LYMPHOCYTES (AUTO) 0.5 10^3/uL (0.5-4.7); ABSOLUTE MONOCYTES (AUTO) 0.4 10^3/uL (0.1-1.4); ABSOLUTE NEUT (AUTO) 5.2 10^3/uL (1.7-8.2); BASOPHILS % (AUTO) 0.8 % (0-2); EOSINOPHILS % (AUTO) 0.9 % (0-6); HEMATOCRIT 46.2 % (37.9-51.0); HEMOGLOBIN 15.7 g/dL (13.5-17.0); LYMPHOCYTES % (AUTO) 8.5 % (13-45); MEAN CORPUSCULAR HEMOGLOBIN 31.4 pg (27.0-33.4); MEAN CORPUSCULAR HGB CONC 34.1 g/dL (32.0-36.0); MEAN CORPUSCULAR VOLUME 92 fl (80-97); MONOCYTES % (AUTO) 6.9 % (3-13); PLATELET COUNT 189 10^3/uL (150-450); RED BLOOD COUNT 5.01 10^6/uL (4.35-5.55); SEGMENTED NEUTROPHILS % (AUTO) 82.9 % (42-78); TOTAL CELLS COUNTED % (AUTO) 100 %; WHITE BLOOD COUNT 6.2 10^3/uL (4.0-10.5)
[2017-10-25 14:20] LABS: ALANINE AMINOTRANSFERASE 37 U/L (21-72); ALBUMIN 4.3 g/dL (3.5-5.0); ALKALINE PHOSPHATASE 70 U/L (38-126); ANION GAP 15 (5-19); ASPARTATE AMINO TRANSFERASE 36 U/L (17-59); BILIRUBIN,DIRECT 0.3 mg/dL (0.0-0.4); BILIRUBIN,TOTAL 1.6 mg/dL (0.2-1.3); BLOOD UREA NITROGEN 18 mg/dL (7-20); CARBON DIOXIDE 28 mmol/L (22-30); CHLORIDE 103 mmol/L (98-107); CREATINE KINASE 63 U/L (55-170); GLUCOSE 258 mg/dL (75-110); LIPASE 164.9 U/L (23-300); POTASSIUM 4.6 mmol/L (3.6-5.0); SODIUM 145.7 mmol/L (137-145); TOTAL PROTEIN 7.5 g/dL (6.3-8.2)
[2017-10-25 14:31] LABS: CREATINE KINASE MB 2.07 ng/mL (<4.55); TROPONIN I 0.016 ng/mL
--- NOTE | 2017-10-25 14:56 | RADIOLOGY REPORT (SQ) ---
EXAM DESCRIPTION: CHEST SINGLE VIEW COMPLETED DATE/TIME: 10/25/2017 2:35 pm REASON FOR STUDY: chest pain, epigastric abd pain COMPARISON: None. EXAM PARAMETERS: NUMBER OF VIEWS: One view. TECHNIQUE: Single frontal radiographic view of the chest acquired. RADIATION DOSE: NA LIMITATIONS: None. FINDINGS: LUNGS AND PLEURA: No acute infiltrates or effusions. Minimal bilateral apical pleural thi ckening. MEDIASTINUM AND HILAR STRUCTURES: No masses. Contour normal. HEART AND VASCULAR STRUCTURES: The heart is normal. The pulmonary vasculature is normal. BONES: No acute findings. HARDWARE: None in the chest. OTHER: Chest leads in place. IMPRESSION: No acute disease. TECHNICAL DOCUMENTATION: JOB ID: [id number] 2010 [employer]- All Rights Reserved Reading location - IP/workstation name: [email or web address]
--- NOTE | 2017-10-25 15:16 | ER Document Report ---
ED General - General Chief Complaint: Abdominal Pain Stated Complaint: DECREASED APPETITE Time Seen by Provider: 10/25/17 13:28 Mode of Arrival: Wheelchair TRAVEL OUTSIDE OF THE [place] IN LAST 30 DAYS: No - HPI Notes: Patient is 77-year-old male with a history of A. fib (on Pradaxa), hyperlipidemia, type II diabetic, history of prostate cancer that was treated with radiation who presents to the ED complaining of decreased p.o. intake and feeling sad and a little depressed since he lost his cat recently. Patient states that he also has an epigastric dull ache that is "lower than his heart." Patient states that all the symptoms began yesterday. Patient states that he thinks he may be dehydrated. Patient states that he had previous symptoms when another 1 of his cats , but states that this one hit him the "hardest." Denies any drug allergies. Patient is accompanied by his daughter. Denies any other significant cardiopulmonary medical history otherwise. Denies any headache, fever, neck pain, changes in vision/speech/mentation/hearing, URI, sore throat, palpitations, syncope, cough, shortness of breath, wheeze, dyspnea , nausea/vomiting/diarrhea, urinary retention, dysuria, hematuria, loss of control of bowel or bladder, numbness/tingling, muscle paralysis/weakness, or rash. Pt has not suicial or homicidal thoughts/ideations. Denies any visual or auditory hallucinations. - Related Data Allergies/Adverse Reactions: No Known Allergies Allergy (Verified 10/25/17 13:23) Past Medical History - General Information source: Patient - Social History Smoking Status: Never Smoker Chew tobacco use (# tins/day): No Frequency of alcohol use: None Drug Abuse: None Family History: Reviewed & Not Pertinent, Other - Unknown Patient has suicidal ideation: No Patient has homicidal ideation: No - Past Medical History Cardiac Medical History: Reports: Hx Atrial Fibrillation, Hx Hypercholesterolemia, Hx Heart Murmur - req sbe prophylaxis Denies: Hx Heart Attack, Hx Hypertension Pulmonary Medical History: Denies: Hx Asthma Neurological Medical History: Denies: Hx Cerebrovascular Accident, Hx Seizures Endocrine Medical History: Reports: Hx Diabetes Mellitus Type 2 Renal/ Medical History: Reports: Hx Kidney Stones. Denies: Hx Peritoneal Dialysis Malignancy Medical History: Reports Hx Prostate Cancer GI Medical History: Denies: Hx Hepatitis, Hx Hiatal Hernia, Hx Ulcer Musculoskeletal Medical History: Reports Hx Arthritis, Reports Hx Musculoskeletal Deformity, Reports Hx Musculoskeletal Trauma Infectious Medical History: Denies: Hx Hepatitis Past Surgical History: Reports: Hx Orthopedic Surgery - knee right replacement, Other - Recent C3 through C5 neck surgery. Denies: Hx Open Heart Surgery, Hx Pacemaker - Immunizations Immunizations up to date: Yes Hx Diphtheria, Pertussis, Tetanus Vaccination: Yes Hx Pneumococcal Vaccination: 09/19/12 Review of Systems - Review of Systems -: Yes All other systems reviewed and negative Physical Exam - Vital signs Vitals: Temp Pulse Resp BP Pulse Ox 97.6 F 91 16 130/71 H 97 10/25/17 13:26 10/25/17 13:26 10/25/17 13:26 10/25/17 13:26 10/25/17 13:26 - Notes Notes: PHYSICAL EXAMINATION: GENERAL: Well-appearing, well-nourished and in no acute distress. A&Ox4. Answers questions appropriately. HEAD: Atraumatic, normocephalic. EYES: Pupils equal round and reactive to light, extraocular movements intact, sclera anicteric, conjunctiva are normal. ENT: Nares patent and without discharge. oropharynx clear without exudates. No tonsilar hypertrophy or erythema. Moist mucous membranes. NECK: Normal range of motion, supple without lymphadenopathy Chest: Non-tender to palpation. LUNGS: Breath sounds clear to auscultation bilaterally and equal. No wheezes rales or rhonchi. HEART: Regular rate and rhythm without murmurs, rubs, gallops. ABDOMEN: Soft, nondistended abdomen. No guarding, no rebound. No masses appreciated. Normal bowel sounds present. No CVA tenderness bilaterally. + epigastric tenderness, correlates with pt's described pain in HPI. Musculoskeletal: FROM to passive/active. Strength 5+/5. Extremities: No cyanosis, clubbing, or edema b/l. Peripheral pulses 2+. Capillary refill less than 3 seconds. NEUROLOGICAL: Cranial nerves grossly intact. Normal speech, normal gait. Normal sensory, motor exams PSYCH: flat affect, appears sad but not crying SKIN: Warm, Dry, normal turgor, no rashes or lesions noted. Course - Re-evaluation Re-evalutation: 10/25/17 15:18 Pt does appear to be somewhat depressed at this time. Initial work up unremarkable at this time. Pt's described pain was reproduced on exam with palp to the epigastrum I gave the patient gatorade, crackers, and apple sauce which he is actively eating/drinking at this time. I did review with patient to allow our Psych service to have a consult with him which he is agreeable to, "if it will help me feel better." Consult placed. We will obtain a 2nd trop in a couple more hours. 10/25/17 18:47 Patient was evaluated by our mental health department and was cleared for discharge. Refer to mental health note. Pt has no SI/HI. Patient is an afebrile, well-hydrated, 77-year-old male who presents to the ED with depressed mood, decreased appetite, with resolved epigastric pain. Vitals are acceptable without any significant tachycardia, tachypnea, or hypoxia. PE is otherwise unremarkable. Patient's described pain was reproducible upon palpation to the epigastrium which has since resolved after p.o. intake was given. Patient also received 2 L of fluid. Patient drank an entire bottle of Gatorade as well as eating crackers and a few cups of applesauce. Patient states that he is feeling much better and would like to go home. He has not had any chest pain, dyspnea, or shortness of breath throughout his stay. CBC, CMP, lipase, urinalysis, urine drug screen, cardiac enzymes 2/EKG, chest x-ray were unremarkable for any acute pathology. Patient has a wells score of 0 and heart score of 4 (2 for age alone and 2 for PMH), but based on his presentation and symptomatology I do have a lower suspicion for ACS, PE, pneumothorax, pericarditis, dissection, respiratory compromise, severe dehydration, sepsis, meningitis, or other systemic emergent condition at this time. Patient is aware that his condition can change from initial presentation and he needs to monitor symptoms closely and seek medical attention for any acute changes. Recommend conservative measures for symptoms. Recheck with your PCM in 3-5 days. Return to the ED with any worsening/concerning symptoms otherwise as reviewed in discharge. Patient is in agreement. - Vital Signs Vital signs: Temp Pulse Resp BP Pulse Ox 97.6 F 91 16 111/85 100 10/25/17 13:26 10/25/17 13:26 10/25/17 17:01 10/25/17 17:01 10/25/17 17:01 - Laboratory Result Diagrams: 10/25/17 13:45 10/25/17 13:45 Laboratory results interpreted by me: 10/25/17 10/25/17 10/25/17 13:45 13:45 16:44 RDW 15.0 H Seg Neutrophils % 82.9 H Lymphocytes % 8.5 L Sodium 145.7 H Glucose 258 H Total Bilirubin 1.6 H Urine Glucose (UA) >=500 H Urine Ketones TRACE H Urine Urobilinogen 4.0 H Urine Ascorbic Acid 40 H Discharge - Discharge Clinical Impression: Epigastric pain, Depressed mood, Decreased oral intake Condition: Stable Disposition: HOME, SELF-CARE Instructions: Abdominal Pain ([facility]) Additional Instructions: Maintain adequate fluid and food intake Healthy diet Zofran as needed tylenol if needed Monitor for any worsening symptoms Make sure you are staying hydrated enough to urinate and have normal BM's Recheck with your PCM in 2-3 days Consider consult with Gastroenterology/Cardiology for ongoing/worsening symptoms Return to the ED with any worsening symptoms and/or development of fever, headache, chest pain, palpitations, syncope, shortness of breath, trouble breathing, abdominal pain, n/v/d, blood in stool/urine, weakness, suicidal/ homicidal thoughts/ideations, or other worsening symptoms that are concerning to you. Prescriptions: Ondansetron [Zofran Odt 4 mg Tablet] 1 - 2 tab PO Q4H PRN #15 tab.rapdis PRN Reason: For Nausea/Vomiting Referrals: ED IQBAL MD [Primary Care Provider] - 10/27/17
[2017-10-25] MEDS ORDERED: FAMOTIDINE INJ/PF 20 MG/2 ML SDV IV ONE (15:20)
[2017-10-25 17:11] LABS: APPEARANCE,URINE CLEAR; BILIRUBIN,URINE NEGATIVE (NEGATIVE); COLOR,URINE YELLOW; GLUCOSE, URINE >=500 mg/dL (NEGATIVE); KETONES,URINE TRACE mg/dL (NEGATIVE); LEUKOCYTE ESTERASE,URINE NEGATIVE (NEGATIVE); NITRITE,URINE NEGATIVE (NEGATIVE); PROTEIN,URINE NEGATIVE (NEGATIVE); URINE SPECIFIC GRAVITY 1.024
[2017-10-25 17:33] LABS: URINE AMPHETAMINES SCREEN NEGATIVE; URINE BARBITURATES SCREEN NEGATIVE; URINE BENZODIAZEPINES SCREEN NEGATIVE; URINE COCAINE SCREEN NEGATIVE; URINE MARIJUANA (THC) SCREEN NEGATIVE; URINE METHADONE SCREEN NEGATIVE; URINE PHENCYCLIDINE SCREEN NEGATIVE
[2017-10-25 18:56] VITALS: BP 106/71
--- NOTE | 2017-10-25 18:59 | PSYCHOLOGICAL NOTE ---
Psych Note - Psych Note Psych Note: met with 77yo patient despondent over the of his cat yesterday. Patient teary eyed as he spoke. passive SI, stating that he would kill himself if it were not for his yazdanism (orthodox). Did not know how he would kill himself and did not have a specific time frame.. 74 yo had a stroke in June and can no longer drive. Additional stressor on patient. Patient will not leave the house so that he can take care of . Daughter lives in [place]. Granddaughter and boyfriend live with patient but in and out..not really able to supervise patient. Pt is not appropriate for grief support group because he does not want to leave at home. Pt. does not want to get another pet. Very heartbroken. Couldn't talk about it without crying. No MH providers. no previous SI or attempts.Talked with patient's daughter and patient has been experiencing random health problems over the last year and feels defeated. Patient is diabetic. Staffed case with Dr. Forte and it is determined that he can be discharged from [facility]. Clinician contacted the grand daughter, Naida at [phone] to confirm that she could increase supervision. Clinician also contacted Maddison, discharge planning to request evaluation for home health care or in home services when the patient returns home. Clinician spoke to Kathy [phone], patient's daughter while she was at the hospital. Clinician gave her resource list to include mobile crisis for follow up/additional resources.
--- NOTE | 2017-10-25 23:43 | EKG REPORT ---
SEVERITY:- ABNORMAL ECG - ATRIAL FIBRILLATION, V-RATE 48-69 : Confirmed by: Pascual Gonzalez 25-Oct-2017 23:42:42
== END 2017-10-25 18:56 | disposition home or self-care (01) ==
LOC: ER 13:22
DX: R10.13 Epigastric pain (principal); F32.9 Major depressive disorder, single episode, unspecified; R63.0 Anorexia; I48.91 Unspecified atrial fibrillation; Z79.02 Long term (current) use of antithrombotics/antiplatelets; E11.9 Type 2 diabetes mellitus without complications; Z85.46 Personal history of malignant neoplasm of prostate; Z92.3 Personal history of irradiation
CPT/HCPCS: 93005; 99285; 96361; 96374; 36415; 82553; 82550; 83690; 85025; 80053; 81001; 84484; 80307; 71045; 93010; A9270; J7030; S0028

== ENCOUNTER 2018-07-07 17:48 | Emergency (ER) | payer MEDICARE, OTHER ==
[2018-07-07] MEDS ORDERED: NORMAL SALINE 1000 ML 1,000 ML IV ONE (19:15)
[2018-07-07] MEDS ORDERED: METOCLOPRAMIDE HCL INJ/PF 10 MG/2 ML SDV IV ONE (19:16)
--- NOTE | 2018-07-07 19:19 | ER Document Report ---
ED Medical Screen (RME) - General Chief Complaint: Abdominal Pain Stated Complaint: ABDOMINAL PAIN Time Seen by Provider: 07/07/18 19:11 Primary Care Provider: ED IQBAL MD [Primary Care Provider] - Follow up as needed TRAVEL OUTSIDE OF THE [place] IN LAST 30 DAYS: No - HPI Notes: 07/07/18 19:16 Patient is an 78-year-old male with a history of A. fib (on Pradaxa), hyperlipidemia, type II diabetic, history of prostate cancer that was treated with radiation presents to the emergency department complaining of mid to lower abdominal pain across both sides that is described as a sharp pain has been constant for the past 2 days. Patient states that he has decreased p.o. intake, but is still able to urinate and had a normal bowel movement today. The pain does not radiate. He has had associated nausea without vomiting. Denies drug allergies. No history of aneurysms. Denies ABDI, fever, neck pain, URI, CP, SOB, cough, diarrhea, or rash. I have treated and performed a rapid initial assessment of this patient. A comprehensive ED assessment and evaluation of the patient, analysis of test results and completion of medical decision making process will be conducted by a dditional ED providers. PHYSICAL EXAMINATION: GENERAL: no acute distress. A&Ox4. Answers questions appropriately. LUNGS: Breath sounds clear to auscultation bilaterally and equal. No wheezes rales or rhonchi. HEART: Regular rate and rhythm without murmurs, rubs, gallops. ABDOMEN: Soft, nondistended abdomen. No guarding, no rebound. Normal bowel sounds present. No CVA tenderness bilaterally. + mid/generalized abd tenderness (cannot elicit thorough abd exam w/o table, however). NEUROLOGICAL: Normal speech, normal gait. PSYCH: Normal mood, normal affect. - Related Data Allergies/Adverse Reactions: No Known Allergies Allergy (Verified 07/07/18 17:49) Past Medical History - Past Medical History Cardiac Medical History: Reports: Hx Atrial Fibrillation, Hx Hypercholesterolemia, Hx Hypertension, Hx Heart Murmur - req sbe prophylaxis Denies: Hx Heart Attack Pulmonary Medical History: Denies: Hx Asthma, Hx Tuberculosis Neurological Medical History: Denies: Hx Cerebrovascular Accident, Hx Seizures Endocrine Medical History: Reports: Hx Diabetes Mellitus Type 2 Renal/ Medical History: Reports: Hx Kidney Stones. Denies: Hx Peritoneal Dialysis Malignancy Medical History: Reports Hx Prostate Cancer GI Medical History: Denies: Hx Hepatitis, Hx Hiatal Hernia, Hx Ulcer Musculoskeltal Medical History: Reports Hx Arthritis, Reports Hx Musculoskeletal Deformity, Reports Hx Musculoskeletal Trauma Infectious Medical History: Denies: Hx Hepatitis Past Surgical History: Reports: Hx Orthopedic Surgery - knee right replacement, back surg, Other - Recent C3 through C5 neck surgery. Denies: Hx Open Heart Surgery, Hx Pacemaker - Immunizations Immunizations up to date: Yes Hx Diphtheria, Pertussis, Tetanus Vaccination: Yes Physical Exam - Vital signs Vitals: Temp Pulse Resp BP Pulse Ox 98.4 F 86 16 118/85 98 07/07/18 17:55 07/07/18 17:55 07/07/18 17:55 07/07/18 17:55 07/07/18 17:55 Course - Vital Signs Vital signs: Temp Pulse Resp BP Pulse Ox 98.4 F 86 16 118/85 98 07/07/18 17:55 07/07/18 17:55 07/07/18 17:55 07/07/18 17:55 07/07/18 17:55 Doctor's Discharge - Discharge Referrals: ED IQBAL MD [Primary Care Provider] - Follow up as needed
[2018-07-07 20:12] LABS: ABSOLUTE LYMPHOCYTES (AUTO) 0.7 10^3/uL (0.5-4.7); ABSOLUTE MONOCYTES (AUTO) 0.6 10^3/uL (0.1-1.4); ABSOLUTE NEUT (AUTO) 3.8 10^3/uL (1.7-8.2); BASOPHILS % (AUTO) 0.5 % (0-2); EOSINOPHILS % (AUTO) 0.9 % (0-6); LYMPHOCYTES % (AUTO) 13.3 % (13-45); MEAN CORPUSCULAR HGB CONC 34.1 g/dL (32.0-36.0); MEAN CORPUSCULAR VOLUME 91 fl (80-97); MONOCYTES % (AUTO) 11.5 % (3-13); PLATELET COUNT 183 10^3/uL (150-450); RED BLOOD COUNT 4.83 10^6/uL (4.35-5.55); RED CELL DISTRIBUTION WIDTH 13.9 % (11.5-14.0); SEGMENTED NEUTROPHILS % (AUTO) 73.8 % (42-78); TOTAL CELLS COUNTED % (AUTO) 100 %; WHITE BLOOD COUNT 5.2 10^3/uL (4.0-10.5)
[2018-07-07 20:19] LABS: INTERNATIONAL RATION (INR) 1.22
[2018-07-07 20:20] LABS: PARTIAL THROMBOPLASTIN TIME 43.7 SEC (23.5-35.8)
[2018-07-07 21:44] LABS: APPEARANCE,URINE SLIGHTLY-CLOUDY; BILIRUBIN,URINE NEGATIVE (NEGATIVE); CALCIUM OXALATE CRYSTALS,URINE TOO NUMEROUS TO CNT /HPF; COLOR,URINE YELLOW; GLUCOSE, URINE NEGATIVE (NEGATIVE); KETONES,URINE 20 mg/dL (NEGATIVE); LEUKOCYTE ESTERASE,URINE NEGATIVE (NEGATIVE); NITRITE,URINE NEGATIVE (NEGATIVE); PROTEIN,URINE 30 mg/dL (NEGATIVE); URINE SPECIFIC GRAVITY 1.021
[2018-07-07 22:02] LABS: ALANINE AMINOTRANSFERASE 22 U/L (21-72); ALBUMIN 3.8 g/dL (3.5-5.0); ALKALINE PHOSPHATASE 90 U/L (38-126); ANION GAP 10 (5-19); ASPARTATE AMINO TRANSFERASE 33 U/L (17-59); BILIRUBIN,DIRECT 0.5 mg/dL (0.0-0.4); BILIRUBIN,TOTAL 1.6 mg/dL (0.2-1.3); BLOOD UREA NITROGEN 17 mg/dL (7-20); CALCIUM 9.6 mg/dL (8.4-10.2); CARBON DIOXIDE 22 mmol/L (22-30); CHLORIDE 107 mmol/L (98-107); GLUCOSE 119 mg/dL (75-110); POTASSIUM 3.9 mmol/L (3.6-5.0); SODIUM 139.4 mmol/L (137-145); TOTAL PROTEIN 6.8 g/dL (6.3-8.2)
[2018-07-07] MEDS ORDERED: GABAPENTIN 300 MG CAPSULE PO ONE (23:48)
--- NOTE | 2018-07-08 00:37 | RADIOLOGY REPORT (SQ) ---
EXAM DESCRIPTION: CT ABDOMEN PELVIS WITH IV CONTRAST COMPLETED DATE/TME: 07/07/2018 19:15 CLINICAL HISTORY: 78 years, Male, mid/lower abd pain COMPARISON: 04/20/2017 CT TECHNIQUE: 684 Images stored on PACS. All CT scanners at this facility use dose modulation, iterative reconstruction, and/or weight based dosing when appropriate to reduce radiation dose to as low as reasonably achievable (ALARA). [facility]: Dose Right [facility]: CareDose [facility]: Dose Right [facility]: Teradose 4D [facility]: [employer] LIMITATIONS: None. FINDINGS: Lung bases are unremarkable. Degenerative change of the hips. Osseous structures are otherwise grossly intact. Splenic granulomata. Spleen is otherwise unremarkable. Liver, adrenal glands, pancreas, kidneys unremarkable. Large amount of stool in the colon. Occasional sigmoid diverticuli without CT evidence for diverticulitis. Normal appendix. Moderate atheromatous change. No free air. No free fluid IMPRESSION: Negative for acute intra-abdominal/pelvic process. Occasional sigmoid diverticuli without CT evidence for diverticulitis. TECHNICAL DOCUMENTATION: Quality ID # [id number]: Final reports with documentation of one or more dose reduction techniques (e.g., Automated exposure control, adjustment of the mA and/or kV according to patient size, use of iterative reconstruction technique) copyright 2010 [employer]- All Rights Reserved
[2018-07-08] MEDS ORDERED: MORPHINE SULFATE 10 MG/ML INJ IV ONE (01:26)
--- NOTE | 2018-07-08 01:27 | ER Document Report ---
ED General - General Chief Complaint: Abdominal Pain Stated Complaint: ABDOMINAL PAIN Time Seen by Provider: 07/07/18 19:11 Primary Care Provider: ED IQBAL MD [Primary Care Provider] - Follow up tomorrow Notes: Patient is a pleasant 78-year-old male who presents with complaint of some epigastric pain with some vomiting episode occurring earlier today. He says his pain is actually improved now however he is not sure why he was feeling sick earlier. He says he still has some nausea. He denies any diarrhea. No fevers. No blood in the stool. No blood in his emesis. No other complaints at this time. TRAVEL OUTSIDE OF THE [place] IN LAST 30 DAYS: No - Related Data Allergies/Adverse Reactions: No Known Allergies Allergy (Verified 07/07/18 17:49) Past Medical History - Social History Smoking Status: Never Smoker Frequency of alcohol use: None Drug Abuse: None Family History: Reviewed & Not Pertinent, Other - Unknown Patient has suicidal ideation: No Patient has homicidal ideation: No - Past Medical History Cardiac Medical History: Reports: Hx Atrial Fibrillation, Hx Hypercholesterolemia, Hx Hypertension, Hx Heart Murmur - req sbe prophylaxis Denies: Hx Heart Attack Pulmonary Medical History: Denies: Hx Asthma, Hx Tuberculosis Neurological Medical History: Denies: Hx Cerebrovascular Accident, Hx Seizures Endocrine Medical History: Reports: Hx Diabetes Mellitus Type 2 Renal/ Medical History: Reports: Hx Kidney Stones. Denies: Hx Peritoneal Dialysis Malignancy Medical History: Reports Hx Prostate Cancer GI Medical History: Denies: Hx Hepatitis, Hx Hiatal Hernia, Hx Ulcer Musculoskeletal Medical History: Reports Hx Arthritis, Reports Hx Musculoskeletal Deformity, Reports Hx Musculoskeletal Trauma Infectious Medical History: Denies: Hx Hepatitis Past Surgical History: Reports: Hx Orthopedic Surgery - knee right replacement, back surg, Other - Recent C3 through C5 neck surgery. Denies: Hx Open Heart Surgery, Hx Pacemaker - Immunizations Immunizations up to date: Yes Hx Diphtheria, Pertussis, Tetanus Vaccination: Yes Hx Pneumococcal Vaccination: 09/19/12 Review of Systems - Review of Systems Notes: My Normal Review Basic REVIEW OF SYSTEMS: CONSTITUTIONAL : Denies fever, chills, or sweats. Denies recent illness. EENT: Denies eye, ear, throat, or mouth pain or symptoms. Denies nasal or si nus congestion. CARDIOVASCULAR: Denies chest pain. RESPIRATORY: Denies cough, cold, or chest congestion. Denies shortness of breath, difficulty breathing, or wheezing. GASTROINTESTINAL: Epigastric abdominal pain. Some nausea and vomiting. GENITOURINARY: Denies difficulty urinating, painful urination, burning, frequency, or blood in urine. MUSCULOSKELETAL: Denies neck or back pain or joint pain or swelling. SKIN: Denies rash or skin lesions. NEUROLOGICAL: Denies altered mental status or loss of consciousness. Denies headache. Denies weakness or paralysis or loss of use of either side. Denies problems with gait or speech. Denies sensory or motor loss. ALL OTHER SYSTEMS REVIEWED AND NEGATIVE. Physical Exam - Vital signs Vitals: Temp Pulse Resp BP Pulse Ox 98.4 F 86 16 118/85 98 07/07/18 17:55 07/07/18 17:55 07/07/18 17:55 07/07/18 17:55 07/07/18 17:55 - Notes Notes: General Appearance: Well nourished, alert, cooperative, no acute distress, no obvious discomfort. Vitals: reviewed, See vital signs table. Head: no swelling or tenderness to the head Eyes: PERRL, EOMI, Conjuctiva clear Mouth: No decreasd moisture Lungs: No wheezing, No rales, No rhonci, No accessory muscle use, good air exchange bilaterally. Heart: Normal rate, Regular rythm, No murmur, no rub Abdomen: Normal BS, soft, No rigidity, she has says when he first arrived and [facility] receiving pain medicine had a lot of pain to palpation of the epigastric region with the mid-level pushed on his abdomen in triage. He says now he does not have but very small amount of pain when I palpate over his abdomen. Small amount of pain is only in the epigastric region. The remainder of abdomen is nontender. Extremities: strength 5/5 in all extremities, good pulses in all extremities, no swelling or tenderness in the extremities, no edema. Skin: warm, dry, appropriate color, no rash Neuro: speech clear, oriented x 3, normal affect, responds appropriately to questions. Course - Re-evaluation Re-evalutation: 07/08/18 01:26 Patient is feeling improved. His abdomen pain is gone. He has no vomiting at this time. CT scan and labs were negative. The only thing he complains of now his leg pain. He has chronic leg pain occurs at night. He supposed to be on Percocet. I asked him earlier if he wanted the Percocet he said no but now he is requesting something for pain as his leg pain is hurting because he has been without his Percocet. We gave him his gabapentin which he usually takes. We will give him a dose of morphine IV to try to get him out of pain will bit faster. Once he is feeling improved I will reassess and if he continues to do well he will be discharged home. 07/08/18 02:37 On reevaluation patient is feeling much improved. His pain is still gone. He is able to drink the contrast without vomiting. CT scan is normal. Laboratory evaluation is unremarkable. He is asymptomatic at this time. We will discharge him home. I informed him that he should still have a low threshold to return to ER if he has any recurrence of his symptoms. He is to follow-up with a doctor in 1-2 days for reevaluation. Patient agrees with plan and will be discharged home. Dictation of this chart was performed using voice recognition software; therefore, there may be some unintended grammatical errors. - Vital Signs Vital signs: Temp Pulse Resp BP Pulse Ox 97.7 F 87 17 117/83 97 07/08/18 02:52 07/07/18 21:26 07/08/18 02:52 07/08/18 02:52 07/08/18 02:52 - Laboratory Result Diagrams: 07/07/18 19:50 07/07/18 21:28 Laboratory results interpreted by me: 07/07/18 07/07/18 07/07/18 19:50 19:54 21:28 PT 16.0 H APTT 43.7 H Glucose 119 H Total Bilirubin 1.6 H Direct Bilirubin 0.5 H Urine Protein 30 H Urine Ketones 20 H Urine Urobilinogen 4.0 H Urine Ascorbic Acid 40 H Discharge - Discharge Clinical Impression: Abdominal pain Condition: Good Disposition: HOME, SELF-CARE Additional Instructions: You blood work and CT scan did not show any concerning abnormality. Even though you are feeling better and your workup is normal you should still follow up with your doctor in 1-2 days for reevaluation and have a low threshold to return to the ER if you have any return of your symptoms. Please return to the ER immediately if you develop recurrent abdominal pain, vomiting, fevers, or feel unwell. Referrals: ED IQBAL MD [Primary Care Provider] - Follow up tomorrow
[2018-07-08 02:59] VITALS: BP 117/83
== END 2018-07-08 03:11 | disposition home or self-care (01) ==
LOC: ER 17:48
DX: R10.13 Epigastric pain (principal); R11.10 Vomiting, unspecified; I48.91 Unspecified atrial fibrillation; E78.00 Pure hypercholesterolemia, unspecified; I10 Essential (primary) hypertension; E11.9 Type 2 diabetes mellitus without complications; Z87.442 Personal history of urinary calculi; Z85.46 Personal history of malignant neoplasm of prostate; Z96.651 Presence of right artificial knee joint
CPT/HCPCS: 99284; 96361; 96374; 96375; 36415; 83605; 83690; 85025; 85610; 85730; 80053; 81001; 74177; A9270; J2765; J2270; J7030

== ENCOUNTER 2018-10-14 12:33 | Inpatient (IN) | payer MEDICARE, OTHER ==
--- NOTE | 2018-10-14 13:19 | ER Document Report ---
ED Medical Screen (RME) - General Chief Complaint: Cough Stated Complaint: SHORT OF BREATH Time Seen by Provider: 10/14/18 13:12 Primary Care Provider: ED IQBAL MD [Primary Care Provider] - Follow up as needed Notes: Patient is an 78-year-old male presents to the emergency department for worsening cough and shortness of breath. States he was treated with azithromycin for pneumonia. States his primary care provider called him and change his antibiotic to Levaquin approximately 2 days ago. States been taking medications as prescribed but continues with generalized shortness of breath. States he feels very weak and has generalized chest tightness at this time. Patient states primary care provider called him and told him to go to the emergency department for hospital admission. LUNGS: Diminished to auscultation bilaterally, no discernible wheezes, rales, or rhonchi heard. Patient had no temperature noted on triage evaluation. Instructed nursing staff need for temperature at this time. I have greeted and performed a rapid initial assessment of this patient. A comprehensive ED assessment and evaluation of the patient, analysis of test results and completion of the medical decision making process will be conducted by additional ED providers. I have specifically instructed the patient or family members with the patient to immediately return to any nursing staff should anything change in the patient's condition or with their chief complaint. This medical record was dictated with voice recognizing software. There may be grammatical, syntax errors that are unintended. TRAVEL OUTSIDE OF THE [place] IN LAST 30 DAYS: No - Related Data Allergies/Adverse Reactions: No Known Allergies Allergy (Verified 07/07/18 17:49) Past Medical History - Past Medical History Cardiac Medical History: Reports: Hx Atrial Fibrillation, Hx Hypercholesterolemia, Hx Hypertension, Hx Heart Murmur - req sbe prophylaxis Denies: Hx Heart Attack Pulmonary Medical History: Denies: Hx Asthma, Hx Tuberculosis Neurological Medical History: Denies: Hx Cerebrovascular Accident, Hx Seizures Endocrine Medical History: Reports: Hx Diabetes Mellitus Type 2 Renal/ Medical History: Reports: Hx Kidney Stones. Denies: Hx Peritoneal Dialysis Malignancy Medical History: Reports Hx Prostate Cancer GI Medical History: Denies: Hx Hepatitis, Hx Hiatal Hernia, Hx Ulcer Musculoskeltal Medical History: Reports Hx Arthritis, Reports Hx Musculoskeletal Deformity, Reports Hx Musculoskeletal Trauma Infectious Medical History: Denies: Hx Hepatitis Past Surgical History: Reports: Hx Orthopedic Surgery - knee right replacement, back surg, Other - Recent C3 through C5 neck surgery. Denies: Hx Open Heart Surgery, Hx Pacemaker - Immunizations Immunizations up to date: Yes Hx Diphtheria, Pertussis, Tetanus Vaccination: Yes Physical Exam - Vital signs Vitals: Pulse Resp BP Pulse Ox 97 22 H 113/82 96 10/14/18 12:44 10/14/18 12:44 10/14/18 12:44 10/14/18 12:44 Course - Vital Signs Vital signs: Temp Pulse Resp BP Pulse Ox 97 22 H 113/82 96 10/14/18 12:44 10/14/18 12:44 10/14/18 12:44 10/14/18 12:44 Doctor's Discharge - Discharge Referrals: ED IQBAL MD [Primary Care Provider] - Follow up as needed
[2018-10-14 13:46] LABS: ABSOLUTE LYMPHOCYTES (AUTO) 0.7 10^3/uL (0.5-4.7); ABSOLUTE MONOCYTES (AUTO) 0.5 10^3/uL (0.1-1.4); ABSOLUTE NEUT (AUTO) 5.3 10^3/uL (1.7-8.2); BASOPHILS % (AUTO) 0.6 % (0-2); EOSINOPHILS % (AUTO) 0.4 % (0-6); HEMATOCRIT 45.2 % (37.9-51.0); HEMOGLOBIN 15.5 g/dL (13.5-17.0); LYMPHOCYTES % (AUTO) 10.2 % (13-45); MEAN CORPUSCULAR HEMOGLOBIN 31.2 pg (27.0-33.4); MEAN CORPUSCULAR HGB CONC 34.3 g/dL (32.0-36.0); MEAN CORPUSCULAR VOLUME 91 fl (80-97); MONOCYTES % (AUTO) 8.2 % (3-13); PLATELET COUNT 395 10^3/uL (150-450); RED BLOOD COUNT 4.96 10^6/uL (4.35-5.55); RED CELL DISTRIBUTION WIDTH 14.2 % (11.5-14.0); SEGMENTED NEUTROPHILS % (AUTO) 80.6 % (42-78); TOTAL CELLS COUNTED % (AUTO) 100 %; WHITE BLOOD COUNT 6.5 10^3/uL (4.0-10.5)
[2018-10-14 14:03] LABS: ALANINE AMINOTRANSFERASE 39 U/L (21-72); ALBUMIN 4.2 g/dL (3.5-5.0); ALKALINE PHOSPHATASE 111 U/L (38-126); ANION GAP 12 (5-19); ASPARTATE AMINO TRANSFERASE 43 U/L (17-59); BILIRUBIN,DIRECT 0.7 mg/dL (0.0-0.4); BILIRUBIN,TOTAL 1.4 mg/dL (0.2-1.3); BLOOD UREA NITROGEN 11 mg/dL (7-20); CALCIUM 10.5 mg/dL (8.4-10.2); CARBON DIOXIDE 30 mmol/L (22-30); CHLORIDE 100 mmol/L (98-107); GLUCOSE 114 mg/dL (75-110); POTASSIUM 5.1 mmol/L (3.6-5.0); TOTAL PROTEIN 8.5 g/dL (6.3-8.2)
--- NOTE | 2018-10-14 15:16 | RADIOLOGY REPORT (SQ) ---
EXAM DESCRIPTION: CHEST 2 VIEWS COMPLETED DATE/TIME: 10/14/2018 2:40 pm REASON FOR STUDY: SOB COMPARISON: 07/19/2015 EXAM PARAMETERS: NUMBER OF VIEWS: two views TECHNIQUE: Digital Frontal and Lateral radiographic views of the chest acquired. RADIATION DOSE: NA LIMITATIONS: none FINDINGS: LUNGS AND PLEURA: The lungs are hyperexpanded. There is no infiltrate, effusion, or mass. MEDIASTINUM AND HILAR STRUCTURES: No masses or contour abnormalities. HEART AND VASCULAR STRUCTURES: Heart normal size. No evidence for failure. BONES: No acute findings. HARDWARE: None in the chest. OTHER: No other significant finding. IMPRESSION: Chronic lung changes with no acute cardiopulmonary findings. TECHNICAL DOCUMENTATION: JOB ID: [id number] [employer]- All Rights Reserved Reading location - IP/workstation name: [email or web address]
[2018-10-14] MEDS ORDERED: IPRATROPIUM/ALBUTEROL 0.5-2.5 MG/3 ML AMPUL NEB ONE (15:56)
--- NOTE | 2018-10-14 16:11 | ER Document Report ---
ED General - General Chief Complaint: Cough Stated Complaint: SHORT OF BREATH Time Seen by Provider: 10/14/18 13:12 Primary Care Provider: ED IQBAL MD [Primary Care Provider] - Follow up as needed TRAVEL OUTSIDE OF THE [place] IN LAST 30 DAYS: No - HPI Notes: Patient is an 78-year-old male with history of A. fib (not currently on any rate control medication, just pradaxa), type 2 diabetes who presents complaining of productive cough for 3 weeks with shortness of breath associated. Patient states that he does have some associated chest tightness. Patient states that he was diagnosed with pneumonia and has since finished azithromycin. Patient states that he continued to have symptoms and was evaluated by his family doctor couple days ago who then gave him Levaquin. Patient states that he has been taking that medication, but has not felt any different. He is able to eat and drink without difficulty. He is urinating normally and having normal bowel movements. Denies drug allergies. No history of CAD/PR, PE, DVT. Denies any headache, fever, URI, sore throat, palpitations, syncope, cough, wheeze, abdominal pain, nausea/vomiting/diarrhea, urinary retention, dysuria, hematuria, or rash. - Related Data Allergies/Adverse Reactions: No Known Allergies Allergy (Verified 07/07/18 17:49) Past Medical History - Social History Smoking Status: Never Smoker Chew tobacco use (# tins/day): No Frequency of alcohol use: None Drug Abuse: None Family History: Reviewed & Not Pertinent, Other - Unknown Patient has suicidal ideation: No Patient has homicidal ideation: No - Past Medical History Cardiac Medical History: Reports: Hx Atrial Fibrillation, Hx Hypercholest erolemia, Hx Hypertension, Hx Heart Murmur - req sbe prophylaxis Denies: Hx Heart Attack Pulmonary Medical History: Denies: Hx Asthma, Hx Tuberculosis Neurological Medical History: Denies: Hx Cerebrovascular Accident, Hx Seizures Endocrine Medical History: Reports: Hx Diabetes Mellitus Type 2 Renal/ Medical History: Reports: Hx Kidney Stones. Denies: Hx Peritoneal Dialysis Malignancy Medical History: Reports Hx Prostate Cancer GI Medical History: Denies: Hx Hepatitis, Hx Hiatal Hernia, Hx Ulcer Musculoskeletal Medical History: Reports Hx Arthritis, Reports Hx Musculoskeletal Deformity, Reports Hx Musculoskeletal Trauma Infectious Medical History: Denies: Hx Hepatitis Past Surgical History: Reports: Hx Orthopedic Surgery - knee right replacement, back surg, Other - Recent C3 through C5 neck surgery. Denies: Hx Open Heart Surgery, Hx Pacemaker - Immunizations Immunizations up to date: Yes Hx Diphtheria, Pertussis, Tetanus Vaccination: Yes Hx Pneumococcal Vaccination: 09/19/12 Review of Systems - Review of Systems -: Yes All other systems reviewed and negative Physical Exam - Vital signs Vitals: Pulse Resp BP Pulse Ox 97 22 H 113/82 96 10/14/18 12:44 10/14/18 12:44 10/14/18 12:44 10/14/18 12:44 - Notes Notes: PHYSICAL EXAMINATION: GENERAL: cachectic and in no acute distress. HEAD: Atraumatic, normocephalic. EYES: Pupils equal round and reactive to light, extraocular movements intact, sclera anicteric, conjunctiva are normal. ENT: Nares patent and without discharge. oropharynx clear without exudates. No tonsilar hypertrophy or erythema. Moist mucous membranes. NECK: Normal range of motion, supple without lymphadenopathy LUNGS: Breath sounds clear to auscultation bilaterally and equal. No wheezes rales or rhonchi. HEART: Regular rate and rhythm without murmurs, rubs, gallops. ABDOMEN: Soft, nontender, nondistended abdomen. No guarding, no rebound. Normal bowel sounds present. No CVA tenderness bilaterally. Musculoskeletal: FROM to passive/active. Strength 5+/5. Sahra neg. No asymmetry to LE's. Extremities: No cyanosis, clubbing, or edema b/l. Peripheral pulses 2+. Capillary refill less than 3 seconds. NEUROLOGICAL: Normal speech, normal gait. PSYCH: Normal mood, normal affect. SKIN: Warm, Dry, normal turgor, no rashes or lesions noted. Course - Re-evaluation Re-evalutation: 10/14/18 16:[address] Kinney who recommends CTA of the chest to further evaluate. Current work-up unremarkable. Vitals acceptable. 10/14/18 18:40 Patient is an afebrile, well-hydrated, 78-year-old male who presents with A-fib with intermittent RVR, SOB, and episodes of hypoxia. See captured vitals. I did receive a ribbon strip at 1817 approx that showed a run of a HR at 177. He has been fluctuating from 90's to that range, but is usually around 100. Labs are acceptable. CTA of the chest as well as a chest x-ray were unremarkable. EKG acceptable. I did review again with Dr. Kinney who recommends Cardizem 5mg IV with 30mg PO. Plan for admit. I then spoke with Lorin Bermudez [employer], hospitalist, who accepted pt to [facility]. Pt in agreement with plan. - Vital Signs Vital signs: Temp Pulse Resp BP Pulse Ox 98.7 F 97 43 H 124/81 90 L 10/14/18 14:25 10/14/18 12:44 10/14/18 18:01 10/14/18 18:00 10/14/18 18:01 - Laboratory Result Diagrams: 10/14/18 13:35 10/14/18 13:35 Laboratory results interpreted by me: 10/14/18 10/14/18 10/14/18 13:35 13:35 13:35 RDW 14.2 H Seg Neutrophils % 80.6 H Lymphocytes % 10.2 L Potassium 5.1 H Glucose 114 H Calcium 10.5 H Total Bilirubin 1.4 H Direct Bilirubin 0.7 H NT-Pro-B Natriuret Pep 1020 H Total Protein 8.5 H Discharge - Discharge Clinical Impression: Atrial fibrillation Qualifiers: Atrial fibrillation type: chronic Qualified Code(s): I48.2 - Chronic atrial fibrillation Chest pain Qualifiers: Chest pain type: other chest pain Qualified Code(s): R07.89 - Other chest pain Condition: Stable Disposition: ADMITTED INPATIENT Admitting Provider: Lorin Bermudez NP Unit Admitted: [facility] Referrals: ED IQBAL MD [Primary Care Provider] - Follow up as needed
--- NOTE | 2018-10-14 17:58 | RADIOLOGY REPORT (SQ) ---
EXAM DESCRIPTION: CTA CHEST COMPLETED DATE/TIME: 10/14/2018 5:37 pm REASON FOR STUDY: sob COMPARISON: None. TECHNIQUE: CT scan of the chest performed using helical scanning technique with dynamic intravenous contrast injection. Images reviewed with lung, soft tissue and bone windows. Reconstructed coronal and sagittal MPR images reviewed. Additional 3 dimensional post-processing performed to develop Maximal Intensity Projection images (TX P). All images stored on PACS. All CT scanners at this facility use dose modulation, iterative reconstruction, and/or weight based d osing when appropriate to reduce radiation dose to as low as reasonably achievable (ALARA). [facility]: Dose Right [facility]: CareDose [facility]: Dose Right [facility]: Teradose 4D [facility]: LivBlends CONTRAST TYPE AND DOSE: contrast/concentration: Isovue 350.00 mg/ml; Total Contrast Delivered: 50.0 ml; Total Saline Delivered: 75.0 ml Contrast bolus adequate for pulmonary arteries and aorta. RENAL FUNCTION: BUN 11 creatinine 0.79 RADIATION DOSE: CT Rad equipment meets quality standard of care and radiation dose reduction techniq ues were employed. CTDIvol: 14.3 - 33.1 mGy. DLP: 640 mGy-cm. . LIMITATIONS: None. FINDINGS: LUNGS AND PLEURA: There is opacification in the medial right base. There is mild posterio r opacification in the left lower lobe. AORTA AND GREAT VESSELS: No aneurysm. No dissection. HEART: No pericardial effusion. Moderate to marked coronary artery calcifications. PULMONARY ARTERIES: No emboli visualized in the main pulmonary arteries or the segmental branches. HILAR AND MEDIASTINAL STRUCTURES: No identified masses or abnormal nodes. HARDWARE: None in the chest. UPPER ABDOMEN: No significant findings. Limited exam. THYROID AND OTHER SOFT TISSUES: No masses. No adenopathy. BONES: No acute or significant finding. 3D MIPS: Confirm above findings. OTHER: No other significant finding. IMPRESSION: There is no pulmonary embolus. There is no aortic aneurysm or dissection. Cannot exclu de pneumonia in either lower lobe. COMMENT: Quality ID # [id number]: Final reports with documentation of one or more dose reduction techniques (e.g., Automated exposure control, adjustment of the mA and/or kV according to patient size, use of iterative reconstruction technique) TECHNICAL DOCUMENTATION: JOB ID: [id number] [employer]- All Rights Reserved Reading location - IP/workstation name: [email or web address]
[2018-10-14] MEDS ORDERED: DILTIAZEM HCL INJ 25 MG/5 ML VIAL IV ONE (18:16)
[2018-10-14] MEDS ORDERED: DILTIAZEM HCL 30 MG TABLET PO ONE (18:16)
[2018-10-14 18:41] LABS: APPEARANCE,URINE CLEAR; BILIRUBIN,URINE NEGATIVE (NEGATIVE); COLOR,URINE AMBER; GLUCOSE, URINE NEGATIVE (NEGATIVE); KETONES,URINE 20 mg/dL (NEGATIVE); LEUKOCYTE ESTERASE,URINE NEGATIVE (NEGATIVE); NITRITE,URINE NEGATIVE (NEGATIVE); PROTEIN,URINE NEGATIVE (NEGATIVE); URINE SPECIFIC GRAVITY 1.036
[2018-10-14] MEDS ORDERED: FUROSEMIDE INJ/PF 40 MG/4 ML SDV IV ONE (18:42)
[2018-10-14] MEDS ORDERED: HYDROMORPHONE HCL INJ/PF 2 MG/ML AMPULE IV PRN (18:43)
--- NOTE | 2018-10-14 18:44 | Progress Note Acknowledgement ---
Progress Note Acknowledgement Progess Note Acknowledgement: I, the undersigned member of the medical staff with appropriate privileges and with supervisory authority over [Rom Bermudez], a dependent practice allied health professional, acknowledge that I have reviewed the progress notes entered on this patient, and in my professional judgment believe that the assessment made and/or any care evidenced was appropriate
--- NOTE | 2018-10-14 18:52 | PDOC H&P ---
History of Present Illness Admission Date/PCP: 10/14/2018 ED IQBAL MD Patient complains of: Shortness of breath, palpitations History of Present Illness: ED BUENO is a 78 year old male who is been treated for a possible pneumonia by his primary care practitioner. Patient was presented to the office today was not feeling better patient was sent to the ER for evaluation. Chest CT shows possible bilateral lower lobe pneumonia he has no white count no fever. Patient had been on Levaquin for 2 days. Patient was found to have paroxysmal atrial fibrillation with RVR in the ER with rates up to 170s. Patient was given Cardizem 5 mg IV bolus followed by 30 mg p.o. At this time patient's heart rate is in the 90s. Patient's had no other treatment prior to arrival no true aggravating factors. Past Medical History Cardiac Medical History: Reports: Atrial Fibrillation, Hyperlipidema, Hypertension, Heart Murmur - req sbe prophylaxis Denies: Myocardial Infarction Pulmonary Medical History: Denies: Asthma, Tuberculosis Neurological Medical History: Denies: Seizures Endocrine Medical History: Reports: Diabetes Mellitus Type 2 GI Medical History: Denies: Hepatitis, Hiatal Hernia Musculoskeltal Medical History: Reports: Arthritis Hematology: Denies: Anemia, Sickle Cell Disease Past Surgical History Past Surgical History: Reports: Orthopedic Surgery - knee right replacement, back surg, Other - Recent C3 through C5 neck surgery Denies: Pacemaker Social History Information Source: Patient Lives with: Family Smoking Status: Never Smoker Frequency of Alcohol Use: None Hx Recreational Drug Use: No Drugs: None - Advance Directive Resuscitation Status: Do Not Resuscitate Family History Family History: Reviewed & Not Pertinent, Other - Unknown Parental Family History Reviewed: Yes Children Family History Reviewed: Yes Sibling(s) Family History Reviewed.: Yes Medication/Allergy Home Medications: Ascorbic Acid [Vitamin C 500 mg Tablet] 500 mg PO DAILY 06/28/17 Aspirin [Aspirin EC] 81 mg PO DAILY 06/28/17 Bee Pollen 550 mg PO DAILY 06/28/17 Dabigatran Etexilate Mesylate [Pradaxa 150 mg Capsule] 150 mg PO Q12 06/28/17 Diltiazem HCl [Cardizem Cd 120 mg Capsule] 120 mg PO QHS 06/28/17 Gabapentin Enacarbil [Horizant] 600 mg PO BID 06/28/17 Garlic [Odorless Garlic] 500 mg PO DAILY 06/28/17 Gluc Quiroga/Chondro Quiroga A/Vit C/Mn [Glucosamine Chondroitin Tab] 1 tab PO DAILY 06/28/17 Krill/[place]-3/Dha/Epa/Lipids [[place]-3 Krill Oil 300 mg Sftg] 1 cap PO DAILY 06/28/17 Metformin HCl [Glucophage 500 mg Tablet] 500 mg PO BID 06/28/17 Multivitamin [Multiple Vitamins] 1 tab PO DAILY 06/28/17 Oxycodone HCl/Acetaminophen [Percocet 10-325 mg Tablet] 1 tab PO Q8HP PRN 06/28/17 Rosuvastatin Calcium [Crestor 20 mg Tablet] 20 mg PO QHS 06/28/17 Cyclobenzaprine HCl [Flexeril 10 mg Tablet] 10 mg PO Q8HP PRN #10 tablet 06/30/17 Dabigatran Etexilate Mesylate [Pradaxa 150 mg Capsule] 150 mg PO Q12 #0 capsule 06/30/17 Docusate Sodium [Colace 100 mg Capsule] 100 mg PO DAILY capsule 06/30/17 Isosorbide Mononitrate [Imdur 30 mg Tablet.er] 30 mg PO DAILY #30 tab.er.24h 06/30/17 Lansoprazole [Prevacid 30 mg Odt Tablet] 30 mg PO Q6AM #30 tab.rap.dr 06/30/17 Lidocaine [Lidoderm 5% (700 mg) Transdermal Patch] 1 patch TP DAILY #30 adh..patch 06/30/17 Metformin HCl [Glucophage 500 mg Tablet] 500 mg PO BIDACBS tablet 06/30/17 Morphine Sulfate 5 mg PO Q4HP PRN #30 ml 06/30/17 Nitroglycerin [Nitrostat 0.4 mg (1/150 Gr) Tabs 25/Bottle] 1 tab SL Q5MP PRN #1 bottle 06/30/17 Ondansetron [Zofran Odt 4 mg Tablet] 1 - 2 tab PO Q4H PRN #15 tab.rapdis 10/25/17 Allergies/Adverse Reactions: No Known Allergies Allergy (Verified 07/07/18 17:49) Review of Systems Constitutional: ABSENT: chills, fever(s), headache(s), weight gain, weight loss Eyes: ABSENT: visual disturbances Ears: ABSENT: hearing changes Cardiovascular: PRESENT: palpitations Respiratory: PRESENT: dyspnea Gastrointestinal: ABSENT: abdominal pain, constipation, diarrhea, hematemesis, hematochezia, nausea, vomiting Genitourinary: ABSENT: dysuria, hematuria Musculoskeletal: ABSENT: joint swelling Integumentary: ABSENT: rash, wounds Neurological: ABSENT: abnormal gait, abnormal speech, confusion, dizziness, focal weakness, syncope Psychiatric: ABSENT: anxiety, depression, homidical ideation, suicidal ideation Endocrine: ABSENT: cold intolerance, heat intolerance, polydipsia, polyuria Hematologic/Lymphatic: ABSENT: easy bleeding, easy bruising Physical Exam Vital Signs: Temp Pulse Resp BP Pulse Ox 98.7 F 97 43 H 124/81 90 L 10/14/18 14:25 10/14/18 12:44 10/14/18 18:01 10/14/18 18:00 10/14/18 18:01 Intake & Output 10/13/18 10/14/18 10/15/18 06:59 06:59 06:59 Weight 56 kg General appearance: PRESENT: no acute distress, well-developed, well-nourished Head exam: PRESENT: atraumatic, normocephalic Eye exam: PRESENT: conjunctiva pink, EOMI, PERRLA. ABSENT: scleral icterus Ear exam: PRESENT: normal external ear exam Mouth exam: PRESENT: moist, tongue midline Neck exam: ABSENT: carotid bruit, JVD, lymphadenopathy, thyromegaly Respiratory exam: PRESENT: clear to auscultation kaylan, decreased breath sounds, unlabored. ABSENT: rales, rhonchi, wheezes Cardiovascular exam: PRESENT: irregular rhythm, tachycardia. ABSENT: diastolic murmur, rubs, systolic murmur Pulses: PRESENT: normal dorsalis pedis pul Vascular exam: PRESENT: normal capillary refill GI/Abdominal exam: PRESENT: normal bowel sounds, soft. ABSENT: distended, guarding, mass, organolmegaly, rebound, tenderness Rectal exam: PRESENT: deferred Extremities exam: PRESENT: full ROM. ABSENT: calf tenderness, clubbing, pedal edema Neurological exam: PRESENT: alert, awake, oriented to person, oriented to place, oriented to time, oriented to situation, CN II-XII grossly intact. ABSENT: motor sensory deficit Psychiatric exam: PRESENT: appropriate affect, normal mood. ABSENT: homicidal ideation, suicidal ideation Skin exam: PRESENT: dry, intact, warm. ABSENT: cyanosis, rash Results Laboratory Results: 10/14/18 13:35 10/14/18 13:35 10/14/18 10/14/18 13:35 13:35 WBC 6.5 RBC 4.96 Hgb 15.5 Hct 45.2 MCV 91 MCH 31.2 MCHC 34.3 RDW 14.2 H Plt Count 395 Seg Neutrophils % 80.6 H Lymphocytes % 10.2 L Monocytes % 8.2 Eosinophils % 0.4 Basophils % 0.6 Absolute Neutrophils 5.3 Absolute Lymphocytes 0.7 Absolute Monocytes 0.5 Absolute Eosinophils 0.0 Absolute Basophils 0.0 Sodium 141.9 Potassium 5.1 H Chloride 100 Carbon Dioxide 30 Anion Gap 12 BUN 11 Creatinine 0.79 Est GFR ( Amer) > 60 Est GFR (Non-Af Amer) > 60 Glucose 114 H Calcium 10.5 H Total Bilirubin 1.4 H AST 43 ALT 39 Alkaline Phosphatase 111 Total Protein 8.5 H Albumin 4.2 10/14/18 10/14/18 13:35 13:35 Troponin I < 0.012 NT-Pro-B Natriuret Pep 1020 H Impressions: Chest X-Ray 10/14/18 13:13 IMPRESSION: Chronic lung changes with no acute cardiopulmonary findings. Chest/Abdomen CTA 10/14/18 15:56 IMPRESSION: There is no pulmonary embolus. There is no aortic aneurysm or dissection. Cannot exclude pneumonia in either lower lobe. Assessment and Plan - Diagnosis (1) Atrial fibrillation Qualifiers: Atrial fibrillation type: persistent Qualified Code(s): I48.1 - Persistent atrial fibrillation Is this a current diagnosis for this admission?: Yes Plan: 10/14/2018-patient with persistent H fibrillation rate in 90s. Patient with paroxysmal rate going into the 170s. Patient was seen by cardiology on an outpatient patient taken off of all of his rhythm control medication secondary to his heart rate being in the 30s. Patient is on no rate control at this time. Patient was given 5 mg IV bolus Cardizem in the ER along with 30 mg p.o. Patient draped in the 90s at this time. We will continue patient on Cardizem p.o. 30 minutes p.o. every 8 hours. Will reassess in the a.m. continue Pradaxa as well. (2) Pneumonia Is this a current diagnosis for this admission?: Yes Plan: 10/14/2018-possible pneumonia. Patient has a white count or fever. Patient has had possible bilateral lower lobe infiltrates on CT. We will continue azithromycin 500 g p.o. daily. At this time patient has no white count or fever so we will await the return of blood cultures. (3) Elevated brain natriuretic peptide (BNP) level Is this a current diagnosis for this admission?: Yes Plan: 10/14/2018-patient does have elevated BNP of 1000. Patient could have this paroxysmal atrial fibrillation secondary to congestive heart failure. Will give patient Lasix 40 g IV x1 reassess in a.m. (4) Hyperkalemia Is this a current diagnosis for this admission?: Yes Plan: 10/14/2018-potassium 5.1. Patient is going to get Lasix 40 g IV x1. Will reassess potassium in a.m. with BMP. - Time Time Spent with patient: 35 or more minutes
[2018-10-14] MEDS: DILTIAZEM HCL 30 MG TABLET PO SCH (19:08)
[2018-10-14] MEDS: AZITHROMYCIN 250 MG TABLET PO SCH (19:15)
--- NOTE | 2018-10-14 20:33 | EKG REPORT ---
SEVERITY:- ABNORMAL ECG - ATRIAL FIBRILLATION, V-RATE 62-89 : Confirmed by: Pascual Gonzalez 14-Oct-2018 20:32:18
[2018-10-14] MEDS: HEPARIN SOD (PORCINE) 5,000 UNIT/ML 1 ML VIAL SUBCUT SCH (23:07)
[2018-10-15] MEDS: OXYCODONE-ACETAMINOPHEN 5-325 MG TABLET PO PRN ×3 (05:08→21:43)
[2018-10-15] MEDS: DILTIAZEM HCL 30 MG TABLET PO SCH (05:08)
[2018-10-15] MEDS: HEPARIN SOD (PORCINE) 5,000 UNIT/ML 1 ML VIAL SUBCUT SCH (05:09)
[2018-10-15 05:46] LABS: ABSOLUTE EOSINOPHILS # (AUTO) 0.1 10^3/uL (0.0-0.6); ABSOLUTE LYMPHOCYTES (AUTO) 0.8 10^3/uL (0.5-4.7); ABSOLUTE MONOCYTES (AUTO) 0.8 10^3/uL (0.1-1.4); ABSOLUTE NEUT (AUTO) 3.9 10^3/uL (1.7-8.2); BASOPHILS % (AUTO) 0.6 % (0-2); EOSINOPHILS % (AUTO) 1.4 % (0-6); HEMATOCRIT 36.9 % (37.9-51.0); LYMPHOCYTES % (AUTO) 13.9 % (13-45); MEAN CORPUSCULAR HEMOGLOBIN 30.8 pg (27.0-33.4); MEAN CORPUSCULAR HGB CONC 34.4 g/dL (32.0-36.0); MEAN CORPUSCULAR VOLUME 90 fl (80-97); MONOCYTES % (AUTO) 14.3 % (3-13); PLATELET COUNT 306 10^3/uL (150-450); RED BLOOD COUNT 4.12 10^6/uL (4.35-5.55); RED CELL DISTRIBUTION WIDTH 14.1 % (11.5-14.0); SEGMENTED NEUTROPHILS % (AUTO) 69.8 % (42-78); TOTAL CELLS COUNTED % (AUTO) 100 %; WHITE BLOOD COUNT 5.5 10^3/uL (4.0-10.5)
[2018-10-15 05:53] LABS: HEMOGLOBIN 12.7 g/dL (13.5-17.0)
[2018-10-15 05:57] LABS: ANION GAP 11 (5-19); BLOOD UREA NITROGEN 13 mg/dL (7-20); CALCIUM 9.6 mg/dL (8.4-10.2); CARBON DIOXIDE 32 mmol/L (22-30); CHLORIDE 97 mmol/L (98-107); GLUCOSE 131 mg/dL (75-110)
[2018-10-15 06:09] LABS: POTASSIUM 3.9 mmol/L (3.6-5.0)
[2018-10-15 06:14] LABS: FREE T4 (FREE THYROXINE) 2.63 ng/dL (0.78-2.19)
[2018-10-15 06:27] LABS: THYROID STIMULATING HORMONE 0.31 uIU/mL (0.47-4.68)
[2018-10-15] MEDS: AZITHROMYCIN 250 MG TABLET PO SCH (09:07)
--- NOTE | 2018-10-15 09:29 | PDOC PROGRESS REPORT ---
Subjective Progress Note for:: 10/15/18 Subjective:: 10/15/2018-continue chronic pain. Reason For Visit: AFIB RVR Physical Exam Vital Signs: Temp Pulse Resp BP Pulse Ox 97.3 F 61 18 98/55 L 98 10/15/18 07:34 10/15/18 07:34 10/15/18 07:34 10/15/18 07:34 10/15/18 07:34 Intake & Output 10/14/18 10/15/18 10/16/18 06:59 06:59 06:59 Weight 56.9 kg General appearance: PRESENT: no acute distress, well-developed, well-nourished Head exam: PRESENT: atraumatic, normocephalic Eye exam: PRESENT: conjunctiva pink, EOMI, PERRLA. ABSENT: scleral icterus Ear exam: PRESENT: normal external ear exam Mouth exam: PRESENT: moist, tongue midline Neck exam: ABSENT: carotid bruit, JVD, lymphadenopathy, thyromegaly Respiratory exam: PRESENT: clear to auscultation kaylan, tachypnea. ABSENT: rales, rhonchi, wheezes Cardiovascular exam: PRESENT: irregular rhythm, RRR. ABSENT: diastolic murmur, rubs, systolic murmur Pulses: PRESENT: normal dorsalis pedis pul Vascular exam: PRESENT: normal capillary refill GI/Abdominal exam: PRESENT: normal bowel sounds, soft. ABSENT: distended, guarding, mass, organolmegaly, rebound, tenderness Rectal exam: PRESENT: deferred Extremities exam: PRESENT: full ROM. ABSENT: calf tenderness, clubbing, pedal edema Neurological exam: PRESENT: alert, awake, oriented to person, oriented to place, oriented to time, oriented to situation, CN II-XII grossly intact. ABSENT: motor sensory deficit Psychiatric exam: PRESENT: appropriate affect, normal mood. ABSENT: homicidal ideation, suicidal ideation Skin exam: PRESENT: dry, intact, warm. ABSENT: cyanosis, rash Results Laboratory Results: 10/15/18 04:28 10/15/18 04:28 10/14/18 10/14/18 10/14/18 13:35 13:35 18:28 WBC 6.5 RBC 4.96 Hgb 15.5 Hct 45.2 MCV 91 MCH 31.2 MCHC 34.3 RDW 14.2 H Plt Count 395 Seg Neutrophils % 80.6 H Lymphocytes % 10.2 L Monocytes % 8.2 Eosinophils % 0.4 Basophils % 0.6 Absolute Neutrophils 5.3 Absolute Lymphocytes 0.7 Absolute Monocytes 0.5 Absolute Eosinophils 0.0 Absolute Basophils 0.0 Sodium 141.9 Potassium 5.1 H Chloride 100 Carbon Dioxide 30 Anion Gap 12 BUN 11 Creatinine 0.79 Est GFR ( Amer) > 60 Est GFR (Non-Af Amer) > 60 Glucose 114 H Calcium 10.5 H Total Bilirubin 1.4 H AST 43 ALT 39 Alkaline Phosphatase 111 Total Protein 8.5 H Albumin 4.2 TSH Free T4 Urine Color REYES Urine Appearance CLEAR Urine pH 6.0 Ur Specific [place] 1.036 Urine Protein NEGATIVE Urine Glucose (UA) NEGATIVE Urine Ketones 20 H Urine Blood NEGATIVE Urine Nitrite NEGATIVE Ur Leukocyte Esterase NEGATIVE Urine WBC (Auto) 3 Urine RBC (Auto) 1 10/15/18 10/15/18 10/15/18 04:28 04:28 04:28 WBC 5.5 RBC 4.12 L Hgb 12.7 L D Hct 36.9 L MCV 90 MCH 30.8 MCHC 34.4 RDW 14.1 H Plt Count 306 Seg Neutrophils % 69.8 Lymphocytes % 13.9 Monocytes % 14.3 H Eosinophils % 1.4 Basophils % 0.6 Absolute Neutrophils 3.9 Absolute Lymphocytes 0.8 Absolute Monocytes 0.8 Absolute Eosinophils 0.1 Absolute Basophils 0.0 Sodium 140.0 Potassium 3.9 D Chloride 97 L Carbon Dioxide 32 H Anion Gap 11 BUN 13 Creatinine 0.83 Est GFR ( Amer) > 60 Est GFR (Non-Af Amer) > 60 Glucose 131 H Calcium 9.6 Total Bilirubin AST ALT Alkaline Phosphatase Total Protein Albumin TSH 0.31 L Free T4 2.63 H Urine Color Urine Appearance Urine pH Ur Specific [place] Urine Protein Urine Glucose (UA) Urine Ketones Urine Blood Urine Nitrite Ur Leukocyte Esterase Urine WBC (Auto) Urine RBC (Auto) 10/14/18 10/14/18 10/14/18 13:35 13:35 18:28 Troponin I < 0.012 < 0.012 NT-Pro-B Natriuret Pep 1020 H Impressions: Chest X-Ray 10/14/18 13:13 IMPRESSION: Chronic lung changes with no acute cardiopulmonary findings. Chest/Abdomen CTA 10/14/18 15:56 IMPRESSION: There is no pulmonary embolus. There is no aortic aneurysm or dissection. Cannot exclude pneumonia in either lower lobe. Assessment and Plan - Diagnosis (1) Atrial fibrillation Qualifiers: Atrial fibrillation type: persistent Qualified Code(s): I48.1 - Persistent atrial fibrillation Is this a current diagnosis for this admission?: Yes Plan: 10/14/2018-patient with persistent H fibrillation rate in 90s. Patient with paroxysmal rate going into the 170s. Patient was seen by cardiology on an outpatient patient taken off of all of his rhythm control medication secondary to his heart rate being in the 30s. Patient is on no rate control at this time. Patient was given 5 mg IV bolus Cardizem in the ER along with 30 mg p.o. Patient draped in the 90s at this time. We will continue patient on Cardizem p.o. 30 minutes p.o. every 8 hours. Will reassess in the a.m. continue Pradaxa as well. 10/15/2018-patient controlled at this time. I placed patient on Cardizem p.o. every 8 hours. I will DC that is at times patient is dropping down into the 40s while he sleeps. Patient may require pacemaker in the future. I will place patient on Lopressor 12.5 mill grams p.o. twice daily. Patient does show a clinical hyperthyroidism on labs this a.m. I will place patient on methimazole 5 mg p.o. daily. Continue to follow. (2) Pneumonia Is this a current diagnosis for this admission?: Yes Plan: 10/14/2018-possible pneumonia. Patient has a white count or fever. Patient has had possible bilateral lower lobe infiltrates on CT. We will continue azithromycin 500 g p.o. daily. At this time patient has no white count or fever so we will await the return of blood cultures. 10/15/2018-continue to follow patient. Awaiting cultures. No fever or white count. Azithromycin continues (3) Elevated brain natriuretic peptide (BNP) level Is this a current diagnosis for this admission?: Yes Plan: 10/14/2018-patient does have elevated BNP of 1000. Patient could have this paroxysmal atrial fibrillation secondary to congestive heart failure. Will give patient Lasix 40 g IV x1 reassess in a.m. 10/15/2018-patient diuresed well overnight no other complaints at this time lungs are clear I see no other signs of overload at this time. (4) Hyperkalemia Is this a current diagnosis for this admission?: Yes Plan: 10/14/2018-potassium 5.1. Patient is going to get Lasix 40 g IV x1. Will reassess potassium in a.m. with BMP. 10/15/2018-resolved (5) Hyperthyroidism Is this a current diagnosis for this admission?: Yes Plan: 10/15/2018-patient's TSH returned this morning at 0.3 with a high free T4. I suspect the patient has clinical hyperthyroidism. I am obtaining a T3 at this time will obtain a ultrasound of his thyroid to rule out nodule or goiter. I placed patient on methimazole 5 mg p.o. daily. Patient will need a repeat TSH T4 in 2 to 3 months. Patient also shows H fibrillation on monitor was having paroxysmal runs up in 170s history I suspect this could be secondary to this hyperthyroidism. Patient is on Cardizem but unable to tolerate as his heart rate dropped into the 40s while sleeping will DC Cardizem completely place patient on metoprolol 12.5 milligrams p.o. twice daily and titrate to maximal effect. - Time Time Spent with patient: 15-24 minutes - Inpatient Certification Based on my medical assessment, after consideration of the patient's comorbidities, presenting symptoms, or acuity I expect that the services needed warrant INPATIENT care.: Yes I certify that my determination is in accordance with my understanding of Medicare's requirements for reasonable and necessary INPATIENT services [42 CFR 412.3e].: Yes Medical Necessity: Other - Pain control, rate controlled, new diagnosis of hyperthyroidism will obtain ultrasound of thyroid.
[2018-10-15] MEDS ORDERED: (PENDING PHARMACY ID) (Nystatin 5 ML) PO SCH (10:00)
[2018-10-15] MEDS ORDERED: (PENDING PHARMACY ID) (Gabapentin Enacarbil [Horizant] 300 MG) PO SCH (10:00)
[2018-10-15] MEDS ORDERED: (PENDING PHARMACY ID) (Calcium Carbonate [Calcium] 600 MG) PO SCH (10:00)
[2018-10-15] MEDS: DOCUSATE SODIUM 100 MG CAPSULE PO SCH (10:59)
[2018-10-15] MEDS: METOPROLOL TARTRATE 25 MG TABLET PO SCH ×2 (12:00→21:43)
[2018-10-15] MEDS: DABIGATRAN ETEXILATE 150 MG CAPSULE PO SCH ×2 (12:01→21:58)
[2018-10-15] MEDS: OXYCODONE HCL IR 5 MG TABLET PO PRN ×2 (12:07→21:44)
[2018-10-15] MEDS: NYSTATIN 500000 UNIT/5 ML UDCUP PO SCH ×3 (13:05→21:57)
--- NOTE | 2018-10-15 14:31 | RADIOLOGY REPORT (SQ) ---
EXAM DESCRIPTION: U/S THYROID/SFT TISS HD NECK COMPLETED DATE/TIME: 10/15/2018 2:20 pm REASON FOR STUDY: hyperthyroidism COMPARISON: None. TECHNIQUE: Dynamic and static ernandez-scale images acquired of the thyroid gland. Selected additional c olor/power Doppler images recorded. All images stored to PACS. LIMITATIONS: None. FINDINGS: RIGHT LOBE: Normal size. Homogeneous echotexture. No cystic or solid masses. LEFT LOBE: Normal size. Homogeneous echotexture. No cystic or solid masses. ISTHMUS: Normal size. Homogeneous echotexture. No cystic or solid masses. OTHER: No other significant finding. IMPRESSION: NORMAL THYROID ULTRASOUND. TECHNICAL DOCUMENTATION: JOB ID: [id number] [employer]- All Rights Reserved Reading location - IP/workstation name: [email or web address]
[2018-10-15] MEDS: METFORMIN HCL 500 MG TABLET PO SCH (15:19)
[2018-10-15] MEDS: METHIMAZOLE 5 MG TABLET PO SCH (15:19)
[2018-10-15] MEDS ORDERED: (PENDING PHARMACY ID) (Rosuvastatin Calcium [Crestor 20 Mg Tablet] 20 MG) PO SCH (22:00)
[2018-10-15] MEDS ORDERED: (PENDING PHARMACY ID) (Gabapentin Enacarbil [Horizant] 600 MG) PO SCH (22:00)
[2018-10-15] MEDS ORDERED: ATORVASTATIN CALCIUM 40 MG TABLET PO SCH (22:00)
[2018-10-16] MEDS ORDERED: CALCIUM CARBONATE 500 MG TABLET PO SCH (10:00)
[2018-10-16] MEDS: METHIMAZOLE 5 MG TABLET PO SCH (10:46)
[2018-10-16] MEDS: DABIGATRAN ETEXILATE 150 MG CAPSULE PO SCH (10:46)
[2018-10-16] MEDS: DOCUSATE SODIUM 100 MG CAPSULE PO SCH (10:47)
[2018-10-16] MEDS: AZITHROMYCIN 250 MG TABLET PO SCH (10:47)
[2018-10-16] MEDS: METFORMIN HCL 500 MG TABLET PO SCH (10:47)
[2018-10-16] MEDS: METOPROLOL TARTRATE 25 MG TABLET PO SCH (10:47)
[2018-10-16] MEDS: NYSTATIN 500000 UNIT/5 ML UDCUP PO SCH (10:49)
--- NOTE | 2018-10-16 11:25 | PDOC DISCHARGE SUMMARY ---
General - Admit/Disc Date/PCP Admission Date/Primary Care Provider: 10/14/18 18:43 ED IQBAL MD Discharge Date: 10/16/18 - Discharge Diagnosis (1) Atrial fibrillation Is this a current diagnosis for this admission?: Yes (2) Pneumonia Is this a current diagnosis for this admission?: Yes (3) Elevated brain natriuretic peptide (BNP) level Is this a current diagnosis for this admission?: Yes (4) Hyperkalemia Is this a current diagnosis for this admission?: Yes (5) Hyperthyroidism Is this a current diagnosis for this admission?: Yes - Additional Information Resuscitation Status: Do Not Resuscitate Discharge Diet: As Tolerated Discharge Activity: Activity As Tolerated Prescriptions: Azithromycin [Zithromax 250 mg Tablet] 500 mg PO DAILY #3 tablet Methimazole [Tapazole 5 mg Tablet] 5 mg PO DAILY #30 tablet Metoprolol Tartrate [Lopressor 25 mg Tablet] 12.5 mg PO Q12 #60 tablet Home Medications: Ascorbic Acid [Vitamin C 500 mg Tablet] 500 mg PO DAILY 06/28/17 Gabapentin Enacarbil [Horizant] 600 mg PO QHS 06/28/17 Garlic [Odorless Garlic] 500 mg PO DAILY 06/28/17 Gluc [place]iroga/Chondro [place] A/Vit C/Mn [Glucosamine Chondroitin Tab] 1 tab PO DAILY 06/28/17 Krill/[place]-3/Dha/Epa/Lipids [[place]-3 Krill Oil 300 mg Sftg] 1 cap PO DAILY 06/28/17 Multivitamin [Multiple Vitamins] 1 tab PO DAILY 06/28/17 Oxycodone HCl/Acetaminophen [Percocet 10-325 mg Tablet] 1 tab PO Q6HP PRN 06/28/17 Rosuvastatin Calcium [Crestor 20 mg Tablet] 20 mg PO QHS 06/28/17 Dabigatran Etexilate Mesylate [Pradaxa 150 mg Capsule] 150 mg PO Q12 #0 capsule 06/30/17 Docusate Sodium [Colace 100 mg Capsule] 100 mg PO DAILY capsule 06/30/17 Lidocaine [Lidoderm 5% (700 mg) Transdermal Patch] 1 patch TP DAILY #30 adh.. patch 06/30/17 Metformin HCl [Glucophage 500 mg Tablet] 500 mg PO BIDACBS tablet 06/30/17 Calcium Carbonate [Calcium] 600 mg PO DAILY 10/14/18 Cholecalciferol (Vitamin D3) [Vitamin D3 1000 Unit Tablet] 1,000 unit PO DAILY 10/14/18 Fluconazole [Diflucan] 150 mg PO ONCE PRN MDD TAKEN ON 10/1110/14/18 Gabapentin Enacarbil [Horizant] 300 mg PO DAILY 10/14/18 Hydrocodone/Chlorphen P-Stirex [Hydrocodone-Chlorphen ER Susp] 5 ml PO Q12HP PRN MDD FILLED 10/06 FOR 12 DAY SUPPLY 10/14/18 Levofloxacin [Levaquin 500 mg Tablet] 500 mg PO DAILY MDD FILLED 10/11 FOR 7 DAY SUPPLY 10/14/18 Naloxone HCl [Narcan] 4 mg NS ASDIR PRN 10/14/18 Nystatin [Mycostatin 708433 Unit/1 ml Susp 60 ml Btl] 5 ml PO QID MDD FILLED 10/11 FOR 6 DAY SUPPLY 10/14/18 Azithromycin [Zithromax 250 mg Tablet] 500 mg PO DAILY #3 tablet 10/16/18 Methimazole [Tapazole 5 mg Tablet] 5 mg PO DAILY #30 tablet 10/16/18 Metoprolol Tartrate [Lopressor 25 mg Tablet] 12.5 mg PO Q12 #60 tablet 10/16/18 History of Present Illness History of Present Illness: ED BUENO is a 78 year old male who is been treated for a possible pneumonia by his primary care practitioner. Patient was presented to the office today was not feeling better patient was sent to the ER for evaluation. Chest CT shows possible bilateral lower lobe pneumonia he has no white count no fever. Patient had been on Levaquin for 2 days. Patient was found to have paroxysmal atrial fibrillation with RVR in the ER with rates up to 170s. Patient was given Cardizem 5 mg IV bolus followed by 30 mg p.o. At this time patient's heart rate is in the 90s. Patient's had no other treatment prior to arrival no true aggravating factors. Hospital Course Hospital Course: Mr. Bueno was admitted placed on IMCU with telemetry monitoring. Patient was found to have a significant hyperthyroidism with a TSH of 0.3 and an elevated T4. Patient was also being treated on an outpatient basis for possible pneumonia. CT showed possible bilateral lower lobe pneumonia. I will continue patient on antibiotics at this time azithromycin 500 mg p.o. x3 more days. I also place patient on methimazole 5 mill grams p.o. daily for his hyperthyroidism and educated he needs repeat TSH T4 in 2 to 3 months. Patient will follow-up with his primary care this week, Dr. Iqbal. I also placed patient on Lopressor 12.5 mill grams p.o. twice daily for rate control for his known atrial fibrillation. Physical Exam Vital Signs: Temp Pulse Resp BP Pulse Ox 97.4 F 47 L 15 99/65 L 100 10/16/18 07:47 10/16/18 07:47 10/16/18 07:47 10/16/18 07:47 10/16/18 07:47 Intake & Output 10/15/18 10/16/18 10/17/18 06:59 06:59 06:59 Intake Total 490 Output Total 0 Balance 490 Weight 56.9 kg 60 kg General appearance: PRESENT: no acute distress, well-developed, well-nourished Head exam: PRESENT: atraumatic, normocephalic Eye exam: PRESENT: conjunctiva pink, EOMI, PERRLA. ABSENT: scleral icterus Ear exam: PRESENT: normal external ear exam Mouth exam: PRESENT: moist, tongue midline Neck exam: ABSENT: carotid bruit, JVD, lymphadenopathy, thyromegaly Respiratory exam: PRESENT: clear to auscultation kaylan. ABSENT: rales, rhonchi, wheezes Cardiovascular exam: PRESENT: RRR. ABSENT: diastolic murmur, rubs, systolic murmur Pulses: PRESENT: normal dorsalis pedis pul Vascular exam: PRESENT: normal capillary refill GI/Abdominal exam: PRESENT: normal bowel sounds, soft. ABSENT: distended, guarding, mass, organolmegaly, rebound, tenderness Rectal exam: PRESENT: deferred Extremities exam: PRESENT: full ROM. ABSENT: calf tenderness, clubbing, pedal edema Neurological exam: PRESENT: alert, awake, oriented to person, oriented to place, oriented to time, oriented to situation, CN II-XII grossly intact. ABSENT: motor sensory deficit Psychiatric exam: PRESENT: appropriate affect, normal mood. ABSENT: homicidal ideation, suicidal ideation Skin exam: PRESENT: dry, intact, warm. ABSENT: cyanosis, rash Results Laboratory Results: 10/15/18 04:28 10/15/18 04:28 10/14/18 10/14/18 10/14/18 13:35 13:35 18:28 Troponin I < 0.012 < 0.012 NT-Pro-B Natriuret Pep 1020 H Impressions: Chest X-Ray 10/14/18 13:13 IMPRESSION: Chronic lung changes with no acute cardiopulmonary findings. Chest/Abdomen CTA 10/14/18 15:56 IMPRESSION: There is no pulmonary embolus. There is no aortic aneurysm or dissection. Cannot exclude pneumonia in either lower lobe. Thyroid Ultrasound 10/15/18 00:00 IMPRESSION: NORMAL THYROID ULTRASOUND. Qualifiers - * PATIENT BEING DISCHARGED WITH ANY OF THE FOLLOWING DIAGNOSIS: No Acute Heart Failure - Is this a Heart Failure Patient?: No Plan Time Spent: Greater than 30 Minutes
--- NOTE | 2018-10-16 11:27 | ADVANCED CARE ---
- Diagnosis (1) Atrial fibrillation Diagnosis Current: Yes (2) Pneumonia Diagnosis Current: Yes (3) Elevated brain natriuretic peptide (BNP) level Diagnosis Current: Yes (4) Hyperkalemia Diagnosis Current: Yes (5) Hyperthyroidism Diagnosis Current: Yes Attendance: Myself, patient, daughter and son-in-law. Resuscitation Status: Do Not Resuscitate Discussion: Discussed patient's diagnosis and plan of care. Patient was found to have hyperthyroidism which I believe is contributing to his paroxysmal rapid response from atrial fibrillation. Placed on methimazole 5 mill grams p.o. daily. I will also place patient on 12.5 g p.o. Lopressor twice daily. Patient was taken off all rate control medications recently for bradycardia. I suspect patient should be okay with this 12.5 the Lopressor. Patient may require cardiology consult for possible pacemaker in the future if he continues to have low heart rates with needed rate control medications. Family and patient all in agreement with plan of care. Care Planning Goals: 1-treat hyperthyroidism with methimazole 5 mg p.o. daily. Repeat TSH and T4 on an outpatient basis in 2 to 3 months. 2-Lopressor 12.5 mg p.o. twice daily for rate control 3-follow-up primary care this week. 4-this is medicine 5 minutes p.o. daily x3 days for possible pneumonia. Time Spent: 15 minutes
[2018-10-16 12:24] VITALS: BP 92/57
== END 2018-10-16 13:01 | disposition home or self-care (01) | DRG 308 ==
LOC: ER 12:33 → EH 18:43 → 3N 21:19 → OBSVTOIN 10-15 16:15
PROVIDERS: ADMIT Internal Medicine; ATTEND Internal Medicine
DX: I48.0 Paroxysmal atrial fibrillation (principal); J18.1 Lobar pneumonia, unspecified organism; E05.90 Thyrotoxicosis, unspecified without thyrotoxic crisis or storm; E87.5 Hyperkalemia; E78.5 Hyperlipidemia, unspecified; E11.9 Type 2 diabetes mellitus without complications; I10 Essential (primary) hypertension; I48.1 Persistent atrial fibrillation; E78.00 Pure hypercholesterolemia, unspecified; Z96.651 Presence of right artificial knee joint; Z66 Do not resuscitate; Z79.82 Long term (current) use of aspirin; Z79.899 Other long term (current) drug therapy; Z79.891 Long term (current) use of opiate analgesic; Z79.84 Long term (current) use of oral hypoglycemic drugs; Z85.46 Personal history of malignant neoplasm of prostate
CPT/HCPCS: 36415; 71046; 71275; 76536; 80048; 80053; 81001; 83880; 84439; 84443; 84481; 84484; 85025; 87040; 93005; 93010; 94640; 96374; 99285; J1170; J1644; J1940; J3490; J7620